=== PATIENT | male | born 1955 | race Caucasian/White ===

== ENCOUNTER 2018-07-17 14:00 | Outpatient (RCR) | payer OTHER, SELFPAY ==
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
--- NOTE | 2018-07-17 14:42 | HP.PTDCSUM ---
HP - PT D/C Summary It has been my pleasure to treat TYREE GARCIA under orders from NITISH WALKER, for the diagnosis of L shoulder pain for a total of 10 visit(s). Discharge Date: 07/17/18 Please see the following information for a summary of their discharge status. - Subjective Subjective: Not feeling any better. Shots are wearing off. Next step is to get A1C down. Cancelled L shoulder surgery scope due to A1C . Shoulder exercises can bother shoulder but no more than any other activity. - Pain L shoulder. Pain Intensity (Out of 10): 5 neck Pain Intensity (Out of 10): 4 - Overall Improvement % Improvement: 0 - Objective Objective/Function: Still hesitant to elevate but full aROM, much pain especially with ext rotation. - Goals Goal 1:: I with HEP for RC and postural strength Goal Progress: Goal Met Goal 2:: Maintain no pain and normal activities for 6 weeks. Goal Progress: Not Progressing Goal 3:: Back to normal workout without pain. Goal Progress: Not Progressing - Plan Plan: D/C, pt to wait surgery. Pt wants this rather than continued PT which is apporpriate. - D/C Information Discharge Comments: Not improving, will await surgery as able. If there are questions or concerns regarding this patient's physical therapy, please feel free to call me at [phone]. Thank you for the referral of this patient. Sincerely, Collin Flynn, DPT, OCS, CSCS
== END 2018-07-17 19:00 | disposition home or self-care (01) ==
LOC: PT 14:00
DX: M25.512 Pain in left shoulder (principal)
CPT/HCPCS: 97110; 97140; 97162

== ENCOUNTER → 2019-03-14 06:31 | Outpatient (CLI) | payer OTHER, SELFPAY ==
--- NOTE | 2019-03-14 06:38 | ECHOD_ITS ---
Reason For Study: DIZZINESS/GIDDINESS Procedure This was a 2D Doppler, Color Flow transthoracic echocardiogram. Exam performed in department. Left Ventricle Normal LV size. The estimated ejection fraction is 60 %. Normal diastology for age. No regional wall motion abnormalities noted. Right Ventricle Normal RV size. Normal systolic function. Atria Normal left atrium. Normal right atrium. No doppler evidence for ASD. Mitral Valve There is no mitral valve stenosis. No mitral valve insufficiency. Tricuspid Valve There is no tricuspid stenosis. Trivial tricuspid valve insufficiency. Pulmonary artery systolic pressure is 30 mmHg. Aortic Valve Trisinus/trileaflet aortic valve. There is no aortic stenosis. No aortic valve insufficiency. Pulmonic Valve There is no pulmonic valvular stenosis. No pulmonic valve insufficiency. Great Vessels Normal aortic root. Pericardium/Pleural No pericardial effusion. MMode/2D Measurements & Calculations LVIDd: 4.9 cm IVSd: 0.97 cm Ao root diam: 3.4 cm LVIDs: 2.8 cm LVPWd: 1.1 cm RVDd: 3.1 cm FS: 43.8 % LAV(MOD-bp): 48.1 ml LA A4 area: 15.1 cm2 LA dimension(2D): 3.8 cm LAV(MOD-bp) Indexed: 22.1 ml/m2 LAV(MOD-sp2): 53.6 ml LAV(MOD-sp4): 41.0 ml RA A4 area: 12.1 cm2 Time Measurements MV dec time: 0.16 sec Doppler Measurements & Calculations MV E max landon: 51.4 cm/sec Lat Peak E' Landon: 10.8 cm/sec Med Peak E' Landon: 8.1 cm/sec MV A max landon: 55.9 cm/sec E/E' lat: 4.8 E/E' med: 6.4 MV E/A: 0.92 Ao V2 max: 105.4 cm/sec LV V1 max: 86.4 cm/sec PA V2 max: 131.2 cm/sec Ao max P.4 mmHg LV V1 max P.0 mmHg TR max landon: 256.1 cm/sec TR max P.2 mmHg Interpretation Summary The estimated ejection fraction is 60 %. Normal diastology for age. Pulmonary artery systolic pressure is 30 mmHg. Trivial tricuspid valve insufficiency. Ordering Physician: TYREE NICHOLSON Referring Physician: TYREE NICHOLSON Performed By: Ignacia Lam RDCS, RVT
--- NOTE | 2019-03-14 11:27 | STRESSREP ---
Stress Test Report Date: 03/14/2019 Procedure: Exercise tolerance test/imaging study Indications: CAD, syncope Consent: Per the patient Procedure: The patient exercised on a Charlie protocol for 8 minutes achieving a peak heart rate of 162 bpm (103 % predicted maximal heart rate) with a peak blood pressure 194/80 mmHg and a peak MET capacity of 10.1 METs. The baseline ECG demonstrated normal sinus rhythm. The peak exercise ECG demonstrated sinus tachycardia with no significant ST-T changes. EKG during recovery revealed no significant ischemic changes [There were no cardiac dysrhythmias pretest, during exercise, or recovery]. The functional capacity was considered normal for age. There was [no complaint of chest discomfort during exercise or recovery]. The examination was discontinued secondary to dyspnea. Impression: 1. Technically adequate (percent predicted maximal heart rate greater than 85%) exercise tolerance test 2. Stress test is negative for exercise-induced EKG changes of ischemia 3. The test test is negative for exercise-induced chest pain 4. Functional capacity is normal for age 5. Nuclear images pending Myocardial perfusion imaging study: Technique: The patient was injected with [11.6] mCi of technetium 99m Cardiolite and subsequently rest SPECT Cardiolite nuclear imaging was obtained in the horizontal long, vertical long, and short axis views. The patient exercised on a Charlie protocol. Please see above for details. The patient was injected with 33.4 mCi of technetium 99m Cardiolite and subsequently stress SPECT Cardiolite nuclear imaging was obtained in the horizontal long, vertical long, and short axis views. A gated Cardiolite study at peak stress was obtained. Interpretation: Rest and stress SPECT Cardiolite nuclear imaging status post realignment, normalization, and attenuation correction, demonstrates mildly decreased radioisotope uptake in a small portion of the apex on both the rest and stress images. This is likely apical thinning, normal variant. The gated Cardiolite study demonstrates [no significant regional wall motion abnormalities]. The reported LVEF is 56 %. Impression: 1. There is no evidence of significant ischemia or infarction. 2. The gated Cardiolite study reports an LVEF of 56 %. This note was generated with [employer] software. It may contain incorrect words, spelling, and punctuation that were not noted in checking the note before signing.
== END ==
DX: I25.10 Atherosclerotic heart disease of native coronary artery without angina pectoris (principal); R42 Dizziness and giddiness
CPT/HCPCS: 78452; 93017; 93306; A9500; A4216

== ENCOUNTER 2020-02-10 15:30 | Outpatient (RCR) | payer OTHER, SELFPAY ==
--- NOTE | 2019-12-18 14:51 | HP.PTEVAL_ITS ---
Patient's Visit Information TYREE GARCIA is a 64 year old M referred to Physical Therapy by ESTER GANN with a diagnosis of L Rotator cuff repair 11/14/19. Date of Evaluation: 12/18/19 Physical Therapist: Albaro Ackerman, PT, ATC - Visit Plan Frequency: 2x /Week Duration: 4-6 Weeks Plan: Follow rotator cuff protocal. CP for pain - Subjective DOS: 11/14/19. Pt had L rotator cuff repair at that time. Pt notes this was the second time he had to have surgery performed on his L shoulder. Pt reports he fell in 2012 which is when he actually tore his rotator cuff. Pt reports he had PT on his L shoulder prior to surgery but the pain would not go away. Pt is R hand dominant. Pt notes he really doesnt have pain this date. No sleep difficulty at this time as he is able to sleep in his bed. No tingling or numbness in L UE from L shoulder surgery, but pt notes he has had carpal tunnel for a long time. Pt is currently retired. 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 1/10 pain at rest, 7/10 at worst. - Pain L shoulder Pain Intensity (Out of 10): 1 Pain Intensity Range: 7 - Objective Neuro: UE sensation is WNL to light touch. B bicepital reflex= 2/3. ROM: R shoulder AROM flex= 160, abd= 160, ER= 65, IR WNL; L shoulder flex=. MMT: R shoulder 5/5 throughout. L shoulder not tested at this time per protocal. Observation: Incisions are fully healed. No signs of infection. - Goals Goal 1:: Decrease L shoulder pain x 50% to aid with sleep Goal Time Frame: 4-6 Weeks Goal 2:: Increase L shoulder strength to aid with IADL's Goal Time Frame: 4-6 Weeks Goal 3:: Increase R shoulder AROM flex and abd x 30 degrees to aid with overhead lifting Goal Time Frame: 4-6 Weeks Goal 4:: I with HEP Goal Time Frame: 4-6 Weeks - Rehabilitation Potential Physical Therapy Diagnosis: L shoulder pain, weakness, and limited ROM secondary to L rotaotr cuff repair Rehabilitation Potential: Good - Anticipated Interventions Patient/Client Instruction: Educate patient on: Condition, Plan of Care For the Purpose of:: To decrease pain, To increase ROM, To improve muscle performance and motor function Therapeutic Exercise to Include: Strength training, Endurance training, Flexibilty training, Passive ROM, Active ROM, Scapular Strength/Stabilization For the Purpose of:: To decrease pain, To increase ROM, To improve muscle performance and motor function Cryotherapy (ice pack, ice massage): Yes For the Purpose of:: To decrease pain, To increase ROM, To improve muscle performance and motor function Thank you for the opportunity to evaluate your patient. For Medicare and Medicare HMO plans, please review the plan of care and approve it. It will need to be FAXED BACK to us at [phone] for Medicare purposes. For Medicare only, by signing this I certify the plan of care. Please let me know if there are questions or concerns regarding this plan of care. Physician Signature: Date:
--- NOTE | 2020-02-10 15:48 | HP.PTDCSUM ---
It has been my pleasure to treat TYREE GARCIA referred by ESTER GANN, with the diagnosis of L Rotator cuff repair 11/14/19 for a total of 15 visit(s). Discharge Date: Please see the following information for a summary of their discharge status. Subjective: Pt reports he is ready to continue with ex's I. L shoulder Pain Intensity (Out of 10): 1 % Improvement: 75 Objective/Function: L shoulder pain is currently /. L shoulder ROM: flex= 150, abd= 150, ER= 55 degrees. L shoulder MMT: Grossly 4-/5 throughout. Pt is I with HEP. Rx goals achieved Goal 1:: Decrease L shoulder pain x 50% to aid with sleep Goal Progress: Goal Met Goal 2:: Increase L shoulder strength to aid with IADL's Goal Progress: Goal Met Goal 3:: Increase R shoulder AROM flex and abd x 30 degrees to aid with overhead lifting Goal Progress: Goal Met Goal 4:: I with HEP Goal Progress: Goal Met Plan: Discharge If there are questions or concerns regarding this patient's physical therapy, please feel free to call me at [phone]. Thank you for the referral of this patient. Sincerely, Albaro Ackerman, PT, ATC
== END 2020-02-10 19:00 | disposition home or self-care (01) ==
LOC: PT 15:30
DX: S46.012D Strain of muscle(s) and tendon(s) of the rotator cuff of left shoulder, subsequent encounter (principal)
CPT/HCPCS: 97110; 97140; 97161; 97164

== ENCOUNTER 2020-02-21 17:21 | Observation (INO) | payer OTHER, MEDICARE, SELFPAY ==
[2020-02-21 17:21] VITALS: BP 144/94; PULSE 117; RESP 18; TEMP 35.8; O2SAT 99; BMI 25.1
--- NOTE | 2020-02-21 17:24 | EKG12_ITS ---
Test Reason : CP Blood Pressure : / mmHG Vent. Rate : 097 BPM Atrial Rate : 097 BPM P-R Int : 176 ms QRS Dur : 092 ms QT Int : 356 ms P-R-T Axes : 062 041 061 degrees QTc Int : 452 ms Normal sinus rhythm Low voltage QRS Borderline ECG Confirmed by VIOLETTA PRADHAN, CARMELA ([id number]), commissioning editor KANNAN ROMERO ([id number]) on 02/26/2020 9:49:43 A M Referred By: MERI Confirmed By:JACKELINE SHIPLEY MD
--- NOTE | 2020-02-21 17:35 | RAD_ITS ---
STUDY: X-RAY CHEST REASON FOR EXAM: Male, 64 years old. Hypertension. Tachycardia. TECHNIQUE: Frontal view of the chest COMPARISON: None. FINDINGS: The lungs are clear. There are no pleural effusions. There is no pneumothorax. The heart is normal in size. The visualized osseous structures are within normal limits. RAD/Chest 1 View (Portable) IMPRESSION: No acute thoracic pathology. Electronically Signed: Aniceto High, at 17:51 EST Tel , Service support ,
--- NOTE | 2020-02-21 18:06 | ED.DCSUM_ITS ---
History of Present Illness Chief Complaint: Shortness of Breath Informant: Patient Onset: Days Current Severity: Mild Maximum Severity: Mild Narrative: Patient presents secondary to chest pressure and shortness of breath. He states he is not been feeling well for the last 3 or 4 days. Has been checking his vital signs at home and noted his blood pressure to be quite elevated on one reading and then borderline low in the next. He has noted his heart rate ranging anywhere from the 70s to 140s. Today he has had chest pressure into his back. He does report some intermittent shortness of breath almost as if he can not get a deep enough breath. He states he had similar symptoms when he had his OR in 2017. He does have one cardiac stent. Patient states he had a stress test in March of this year that was unremarkable. - Past Medical History (1) Myocardial infarction Status: Chronic (2) H/O heart artery stent Status: Chronic (3) Diabetes Status: Chronic Past Medical History - Allergies and Home Meds Allergies/Adverse Reactions: Allergies No Known Allergies Allergy (Verified 02/21/20 17:24) Primary Care Physician: [place], [place] [Primary Care Provider] - Surgical History: rotator cuff repair - right shoulder- plus labrum repair, tonsillectomy, - - Colectomy Smoking Status: Former smoker Review of Systems General: Denies: Chills, Fever Eyes: Denies: Visual changes - bilaterally ENT: Denies: Bilateral ear pain Cardiovascular: Reports: Chest pain Respiratory: Reports: Dyspnea. Denies: Cough Gastrointestinal: Denies: Abdominal pain, Nausea, Vomiting, Diarrhea Musculoskeletal: Denies: Extremity Pain Neurological: Denies: Headache Hematologic: Denies: Easy bruising, Easy bleeding Allergy: Denies: Uticaria Physical Exam Vital Signs/Narrative: Vital Signs Temp Pulse Resp BP Pulse Ox 02/21/20 17:21 96.5 F L 117 H 18 144/94 H 99 Inital Vital Signs reviewed: Yes General: Well nourished, Well developed Head: Normocephalic ENT: Moist mucous membranes Neck: Supple Cardiovascular: Regular rate, Regular rhythm Respiratory: No distress, CTA bilaterally, Chest nontender Abdomen: Soft, Nontender, Normal bowel sounds Extremities: Nontender Skin: Normal color Neurological: Alert, Oriented x3, Normal Strength, Normal Sensation Psychological: Normal affect Diagnostic/Tx/Re-eval Impressions Chest X-Ray 02/21/20 17:35 IMPRESSION: No acute thoracic pathology. Electronically Signed: Aniceto High, at 17:51 EST Tel , Service support , 02/21/20 17:35 CXR [Chest 1 View (Portable)] [RAD] Stat Laboratory Results 02/21/20 02/21/20 02/21/20 18:00 18:00 18:00 WBC 11.9 H RBC 5.16 Hgb 15.4 Hct 46.1 MCV 89.3 MCH 29.8 MCHC 33.4 RDW Std Deviation 42.2 RDW Coeff of Geri 12.8 Plt Count 231 MPV 9.4 Immature Gran % (Auto) 0.400 Neut % (Auto) 80.8 H Lymph % (Auto) 13.3 L Cuming % (Auto) 4.7 Eos % (Auto) 0.3 Baso % (Auto) 0.5 Absolute Neuts (auto) 9.6 H Absolute Lymphs (auto) 1.58 Nucleated RBC % 0 D-Dimer Quant (PE/DVT) 0.35 Sodium 140 Potassium 4.1 Chloride 106 Carbon Dioxide 24.0 Anion Gap 10 BUN 16 Creatinine 0.96 Estim Creat Clear Calc 90.38 Est GFR (MDRD) Af Amer 101 Est GFR (MDRD) Non-Af 84 BUN/Creatinine Ratio 16.7 Glucose 264 H Calcium 10.0 Troponin I < 0.015 TSH 0.85 - EKG Initial EKG Interpretation: Sinus Rhythm - Sinus at 97 with no acute ischemia. - Medical Decision Making Patient was given Zofran here followed by aspirin. On repeat evaluation he is resting comfortably. Heart rate at this time is 104. Patient does have known cardiac disease with history of OR presenting with similar symptoms. I will speak with physician regarding observation overnight for cycling of cardiac enzymes. This will also enable us to observe patient's vital signs as he is quite concerned about his fluctuating heart rate. ED Disposition - Plan for ED Patient: Disposition: Home or Assisted Living Diagnosis: Chest pain Referrals: [facility] [Primary Care Provider] -
[2020-02-21 18:09] VITALS: BP 151/104; PULSE 98; RESP 18; O2SAT 97; O2SAT 98
[2020-02-21] MEDS: Ondansetron 4 MG/2 ML Vial IV (18:12)
[2020-02-21 18:21] LABS: Absolute Lymphocyte Count 1.58 X10^3/uL (0.83-4.51); Absolute Neutrophil Count 9.6 X10^3/uL (2.0-7.7); Basophil# 0.06 X10^3/uL; Basophil% 0.5 % (0-1); Eosinophil# 0.04 X10^3/uL; Eosinophils% 0.3 % (0-5); Hematocrit 46.1 % (40-54); Hemoglobin 15.4 g/dL (13.0-16.5); Lymphocyte # 1.58 X10^3/ul (4.0); Lymphocyte % 13.3 % (19-41); Mean Corp Hgb Conc 33.4 g/dL (32-36); Mean Corpuscular Hgb 29.8 pg (27.0-32.0); Mean Corpuscular Volume 89.3 fL (80-94); Mean Platelet Vol. 9.4 fl (6.2-12.0); Monocyte# 0.56 X10^3/uL; Monocyte% 4.7 % (0-10); NRBC Flagged by Analyzer 0 % (0-5); Neutrophil # 9.59 X10^3/uL (2.7-7.7); Neutrophil % 80.8 % (47-70); Platelet Count 231 K/mm3 (150-450); RBC Distribution Width CV 12.8 % (11.6-14.6); RBC Distribution Width SD 42.2 fl (35.1-43.9); Red Blood Count 5.16 M/mm3 (4.6-6.2); White Blood Count 11.9 K/mm3 (4.4-11.0)
[2020-02-21 18:32] LABS: D-Dimer Quantitative (DVT/PE) 0.35 FEU/ug/m (0.27-0.49)
[2020-02-21] MEDS: Aspirin 81 MG TAB.CHEW 324 MG PO (18:32)
[2020-02-21 18:48] LABS: Anion Gap 10 (5-15); BUN 16 mg/dL (7-18); BUN/Creat Ratio 16.7 RATIO (10-20); Chloride 106 mmol/L (98-107); Creatinine, Serum 0.96 mg/dL (0.70-1.30); EST Glomerular Filtration Rate 84 mL/min (>60); Est Glom Filt Rate - Afr Amer 101 mL/min (>60); Estimated Creatinine Clearance 90.38 ml/min; Glucose 264 mg/dL (74-106); Potassium 4.1 mmol/L (3.5-5.1); Sodium Level 140 mmol/L (136-145); Thyroid Stim Hormone (TSH) 0.85 uIU/mL (0.358-3.74)
[2020-02-21 19:49] VITALS: BMI 25.2
[2020-02-21 20:06] VITALS: BP 146/74; PULSE 89; RESP 20; TEMP 36.6; O2SAT 98
--- NOTE | 2020-02-21 20:10 | PCM.HP.STD ---
Problem List (1) Myocardial infarction Status: Chronic (2) H/O heart artery stent Status: Chronic (3) Diabetes Status: Chronic (4) Chest pain Status: Acute History of Present Illness Date of Admission: 02/21/20 Chief Complaint: chest pain The patient is a 64 year old M with a significant history of hypertension; diabetes mellitus; CAD s/p coronary stent in 2017 who presents to the emergency department with a 2-day history of chest tightness. His chest tightness is persistent. It radiates to his left arm and to his middle back. He reports nausea and vomiting some of which is unchanged. Patient has abdominal issues and outpatient stress test already being scheduled. Associated with his symptoms is shortness of breath. Also, patient has been having home elevated high blood pressure and elevated heart rates. He reports home blood pressures of more than 200. He reports that his heart rates is in the 100s to 145. He reports palpitations. Reportedly he can hear his heartbeat in his head. Past Medical History Past Medical History (Chronic Problems): Chronic Problems Myocardial infarction (Chronic) H/O heart artery stent (Chronic) Diabetes (Chronic) Allergies No Known Allergies Allergy (Verified 02/21/20 17:24) Home Medications: Ambulatory Orders Medication Instructions Recorded Aspirin 81 tab PO DAILY 04/28/16 Cholecalciferol (VIT D3) [Vitamin 2 tab PO DAILY 04/28/16 D3] Cinnamon Bark [Cinnamon] 1 cap PO BID 04/28/16 Duloxetine HCl 90 mg PO DAILY 04/28/16 Fish Oil 1,000 mg Capsule 2 cap PO BID 04/28/16 Gabapentin [Neurontin] 600 mg PO TIDCM 04/28/16 Insulin Glargine [Lantus (BKC)] 18 units SC DAILY 04/28/16 Lisinopril [Zestril] 2.5 mg PO QHS 04/28/16 Loratadine [Allergy Relief] 10 mg PO DAILY 04/28/16 Nitroglycerin (INPATIENT USE) 0.4 mg SUBLINGUAL Q5M PRN 04/28/16 [Nitrostat] Omeprazole [Prilosec] 40 mg PO DAILY 04/28/16 Triamcinolone Ointment [Kenalog 1 applic TOPICAL BID PRN 04/28/16 Ointment] Vitamin B Complex Vit C No.3 [B 1 cap PO DAILY 04/28/16 Complex with Vitamin C] metFORMIN HCl [Glucophage] 1,000 mg PO BIDCM 04/28/16 Atorvastatin Calcium [Lipitor] 10 mg PO QHS 02/21/20 Docusate Sodium [Dulcolax Stool 100 mg PO BID 02/21/20 Softener] Multivitamin with Minerals 1 ea PO DAILY 02/21/20 [Multiple Vitamin] Surgical History: rotator cuff repair - right shoulder- plus labrum repair, tonsillectomy, - - Colectomy for polyp Smoking Status: Former smoker Tobacco Use: Cigarettes - *Family History Maternal History Items: Cancer - His mother from leukemia, Diabetes Paternal History Items: - - Denies knowledge of paternal medical history Review of Systems Constitutional: Denies: Chills, Fever, Weight Change HEENT: Denies: Head Aches, Sinus Congestion, Sinus Drainage Cardiovascular: Reports: Chest Tightness, Palpitations Respiratory: Reports: Shortness of breath at rest. Denies: Cough, Sputum production Gastrointestinal: Reports: Nausea, Vomiting. Denies: Abdominal Pain Genitourinary: Denies: Dysuria Musculoskeletal: Denies: Joint Pain, Joint Tenderness Skin: Denies: Rash, Wounds Neurological: Denies: Numbness, Tingling, Focal weakness Psychiatric: Reports: Depression. Denies: Anxiety, Homicidal Ideations, Suicidal Ideations Hematologic/ Lymphatic: Denies: Easy Bruising, Easy Bleeding VTE Information - Inpt Only VTE Present on Admission: No VTE Mechan Device Prophylaxis: SCD's VTE Pharm Prophylaxis ordered?: No Patient Problems: Active and Suspected Problems Chest pain (Acute) - Physical Exam Vitals/I&O's: Vital Signs Temp Pulse Resp BP Pulse Ox 98 F 89 20 H 146/74 H 98 02/21/20 20:06 02/21/20 20:06 02/21/20 20:06 02/21/20 20:06 02/21/20 20:06 Oxygen Delivery Method Room Air Weight: 88.904 kg Body Mass Index (BMI) 25.1 General: Alert, Oriented x3, Cooperative HEENT: Atraumatic, PERRLA, EOMI, Normocephalic Neck: Supple, No JVD, Negative Carotid Bruits, Trachea Midline Lungs: Clear to auscultation, Normal air movement, No rhonchi, No wheeze, No rales Cardiovascular: Regular rate, Regular Rhythm, Normal S1, Normal S2, No murmurs Abdomen: Bowel Sounds Present, Soft, Non Tender Extremities: No edema, Capillary Refill Less than 3 Seconds Skin: No rashes, No breakdown Musculoskeletal: No Tenderness to Palpation of Joints or Extremities Neurological: Cranial nerves II-XII grossly intact Psych/Mental Status: Anxious Laboratory Results 02/21/20 18:00: WBC 11.9 H, RBC 5.16, Hgb 15.4, Hct 46.1, MCV 89.3, MCH 29.8, MCHC 33.4, RDW Std Deviation 42.2, RDW Coeff of Geri 12.8, Plt Count 231, MPV 9.4, Immature Gran % (Auto) 0.400, Neut % (Auto) 80.8 H, Lymph % (Auto) 13.3 L, Phelps % (Auto) 4.7, Eos % (Auto) 0.3, Baso % (Auto) 0.5, Absolute Neuts (auto) 9.6 H, Absolute Lymphs (auto) 1.58, Nucleated RBC % 0 02/21/20 18:00: D-Dimer Quant (PE/DVT) 0.35 02/21/20 18:00: Sodium 140, Potassium 4.1, Chloride 106, Carbon Dioxide 24.0, Anion Gap 10, BUN 16, Creatinine 0.96, Estim Creat Clear Calc 90.38, Est GFR (MDRD) Af Amer 101, Est GFR (MDRD) Non-Af 84, BUN/Creatinine Ratio 16.7, Glucose 264 H, Calcium 10.0, Troponin I < 0.015, TSH 0.85 Assessment/Plan All Active Problems Chest pain (Acute) The patient is a 64 year old M with a significant history of hypertension; diabetes mellitus; CAD coronary stenting 2016 who presents emergency department with 2-day history of persisted chest tightness; palpitations; tachycardia; and elevated at home. Chest pain FLOR score of 3; low score Likely secondary to anxiety and elevated blood pressure. Place on a monitored bed at PCU Impression of chest x-ray by radiologist: No acute thoracic pathology. Actual CXR image was independently visualized. No acute cardiopulmonary process was noted. Actual EKG tracing was independently visualized. EKG tracing showed sinus rhythm. Received aspirin 324 mg at emergency department. ASA 81 mg p.o. daily ordered SL NTG 0.4 mg prn as needed for chest pain ordered Morphine as needed for pain ordered We will check lipid panel. Case were discussed with cardiology on-call. Of note patient had unremarkable stress test in March 2019. Will cycle cardiac enzymes and will control blood pressure. Hypertension Elevated blood pressure on presentation. Reported systolic blood pressure of above 200 at home. On lisinopril 2.5 mg p.o. nightly continued. Will start patient on low-dose beta-delonte. Trend blood pressure and adjust blood pressure medications. Diabetes mellitus Blood glucose is not within goal Hold metformin the hospital setting. Continue basal insulin nightly. Accu-Chek q. residual correction scale insulin. Leukocytosis White count of 11.9 with neutrophilic predominance and lymphopenia. Likely reactive. Chest x-ray is not remarkable for Covid. Trend. DVT prophylaxis Patient in observation status. Encouraged to ambulate. SCD ordered. OBSV E&M: 90614 Initial observation care L2
[2020-02-21 20:51] VITALS: BP 140/83; PULSE 78; RESP 17; TEMP 37.2; O2SAT 96
[2020-02-21 20:52] VITALS: BMI 25.5
--- NOTE | 2020-02-21 20:56 | EKG12_ITS ---
Test Reason : CP ADMIT Blood Pressure : / mmHG Vent. Rate : 075 BPM Atrial Rate : 075 BPM P-R Int : 190 ms QRS Dur : 090 ms QT Int : 398 ms P-R-T Axes : 044 006 040 degrees QTc Int : 444 ms Normal sinus rhythm Low voltage QRS Borderline ECG Confirmed by ANDRIY PRADHAN, EPIFANIO ([id number]), web content editor [place] GERMAIN ([id number]) on 02/27/2020 9:08:11 AM Referred By: DR GAR Confirmed By:EPIFANIO ASHRAF MD
[2020-02-21 21:10] VITALS: PULSE 82
[2020-02-21 22:52] VITALS: PULSE 89
[2020-02-21] MEDS: Metoprolol Tartrate 25 MG Tablet 12.5 MG PO (22:52)
[2020-02-21] MEDS: Lisinopril 2.5 MG Tablet PO (22:53)
[2020-02-21] MEDS: Atorvastatin Calcium 10 MG Tablet PO (22:53)
[2020-02-21] MEDS: Insulin Lispro 100 UNIT/ML INSULN.PEN SC (22:54)
[2020-02-21 23:06] LABS: Bedside Glucose 187 mg/dL (70-110)
[2020-02-22 03:07] VITALS: BP 116/66; PULSE 59; PULSE 60; RESP 16; TEMP 36.9; O2SAT 97
[2020-02-22] MEDS: Insulin Lispro 100 UNIT/ML INSULN.PEN SC (06:53)
[2020-02-22 07:00] LABS: Bedside Glucose 189 mg/dL (70-110)
[2020-02-22 07:01] VITALS: PULSE 62
[2020-02-22 07:06] LABS: Absolute Lymphocyte Count 4.23 X10^3/uL (0.83-4.51); Absolute Neutrophil Count 5.4 X10^3/uL (2.0-7.7); Basophil# 0.06 X10^3/uL; Basophil% 0.5 % (0-1); Eosinophil# 0.37 X10^3/uL; Eosinophils% 3.3 % (0-5); Hemoglobin 13.5 g/dL (13.0-16.5); Lymphocyte # 4.23 X10^3/ul (4.0); Lymphocyte % 37.9 % (19-41); Mean Corp Hgb Conc 32.9 g/dL (32-36); Mean Corpuscular Hgb 29.4 pg (27.0-32.0); Mean Corpuscular Volume 89.3 fL (80-94); Mean Platelet Vol. 9.5 fl (6.2-12.0); Monocyte# 1.02 X10^3/uL; Monocyte% 9.1 % (0-10); NRBC Flagged by Analyzer 0 % (0-5); Neutrophil # 5.44 X10^3/uL (2.7-7.7); Neutrophil % 48.8 % (47-70); Platelet Count 197 K/mm3 (150-450); RBC Distribution Width CV 12.7 % (11.6-14.6); RBC Distribution Width SD 41.4 fl (35.1-43.9); Red Blood Count 4.59 M/mm3 (4.6-6.2); White Blood Count 11.2 K/mm3 (4.4-11.0)
[2020-02-22 07:14] VITALS: O2SAT 94
[2020-02-22 07:30] LABS: Cholesterol 82 mg/dL (200); High Density Lipoprotein 28 mg/dL; Triglycerides 85 mg/dL; Very Low Density Lipoprotein 17 mg/dL (5-40)
[2020-02-22] MEDS: Aspirin E.C. 81 MG Tablet PO (08:00)
[2020-02-22] MEDS: Multivitamins,Ther W-Minerals Tablet 1 TABLET PO (08:00)
[2020-02-22] MEDS: Loratadine 10 MG Tablet PO (08:01)
[2020-02-22 08:02] VITALS: PULSE 62
[2020-02-22] MEDS: DULoxetine Hcl 30 MG Capsule 90 MG PO (08:02)
[2020-02-22] MEDS: Metoprolol Tartrate 25 MG Tablet 12.5 MG PO (08:02)
[2020-02-22] MEDS: Gabapentin 600 MG Tablet PO (08:02)
[2020-02-22] MEDS: Vitamin B Comp W-C Capsule 1 CAP PO (08:03)
[2020-02-22] MEDS: Pantoprazole Sodium 40 MG Tablet PO (08:03)
[2020-02-22 09:00] VITALS: BP 114/72; PULSE 63; RESP 20; TEMP 36.5; O2SAT 100
--- NOTE | 2020-02-22 11:30 | DCINST_ITS ---
- Discharge Diagnoses Current Active Problems: Current Active and Chronic Problems Myocardial infarction (Chronic) H/O heart artery stent (Chronic) Diabetes (Chronic) Chest pain (Acute) You will use the following diet at home:: Calorie/Carbohydrate Controlled (specify 1200, 1400, etc), Cardiac Your food should be the consistency of: Regular Your liquids should be the consistency of: Regular/Thin Discharge Activity: Return to Normal Activity Weight Bearing Status: Weight bearing as tolerated Call your doctor if you observe: Fever of 101 or Higher, Coldness, Increased Pain, Numbness or Tingling, Change in Color, Inability to have a bowel movement, Shortness of breath, Dizziness, Fainting spells, Swelling in the ankles, Chest pain, Prolonged hiccoughing, Increased palpitations (irregular heartbeat), Calf discomfort, Uncontrolled pain Additional Instructions: Advised to follow-up with auto specialty services manager for control of heart rate. Allergies/Adverse Reactions: Allergies No Known Allergies Allergy (Verified 02/21/20 17:24) Medications to take at Discharge Aspirin 81 tab PO DAILY 04/28/16 Cholecalciferol (VIT D3) [Vitamin D3] 2 tab PO DAILY 04/28/16 Cinnamon Bark [Cinnamon] 1 cap PO BID 04/28/16 Duloxetine HCl 90 mg PO DAILY 04/28/16 Fish Oil 1,000 mg Capsule 2 cap PO BID 04/28/16 Gabapentin [Neurontin] 600 mg PO TIDCM 04/28/16 Insulin Glargine [Lantus (BKC)] 18 units SC DAILY 04/28/16 Lisinopril [Zestril] 2.5 mg PO QHS 04/28/16 Nitroglycerin (INPATIENT USE) [Nitrostat] 0.4 mg SUBLINGUAL Q5M PRN 04/28/16 Omeprazole [Prilosec] 40 mg PO DAILY 04/28/16 Triamcinolone Ointment [Kenalog Ointment] 1 applic TOPICAL BID PRN 04/28/16 Vitamin B Complex Vit C No.3 [B Complex with Vitamin C] 1 cap PO DAILY 04/28/16 metFORMIN HCl [Glucophage] 1,000 mg PO BIDCM 04/28/16 Atorvastatin Calcium [Lipitor] 10 mg PO QHS 02/21/20 Docusate Sodium [Dulcolax Stool Softener] 100 mg PO BID 02/21/20 Multivitamin with Minerals [Multiple Vitamin] 1 ea PO DAILY 02/21/20 Loratadine [Allergy Relief] 10 mg PO DAILY PRN PRN #0 02/22/20 Metoprolol Tartrate [Lopressor (beta delonte)] 12.5 mg PO BID #60 tab 02/22/20 Primary Care Physician: [facility],[place] [Primary Care Provider] - Please follow up with your Primary Care Physician in: In 2 weeks Test Results: Test results from this visit will be discussed in further detail at your follow- up appointment, if applicable.
--- NOTE | 2020-02-22 12:04 | PCM.DC.SUM ---
Discharge Date and Diagnosis - Problem List Patient Problems: Active and Suspected Problems Chest pain (Acute) Date of Admission: 02/21/20 Date of Discharge: 02/22/20 - Primary Discharge Diagnosis Acute Problems: Active Problems Chest pain (Acute) - Secondary Discharge Diagnosis Chronic Problems: Chronic Problems Myocardial infarction (Chronic) H/O heart artery stent (Chronic) Diabetes (Chronic) Hospital Course and Treatment Summary of Care Provided: [] This 64 woman with history of hypertension, diabetes mellitus, coronary artery status post PCI/stenting 2017 was admitted with 2 to 3 days of chest tightness with radiation to left arm and back associated with mild SOB, palpitation, tachycardia. Patient also had fluctuation in heart rate and blood pressure mainly on walking and exertion. Heart rate fluctuates between 100s to 145 and blood pressure from 120s to 200s. Patient was admitted on PCU. EKG shows sinus rhythm. Chest x-ray no acute abnormality. Patient walking heart rate and blood pressure was monitored. Patient heart rate in 70s and blood pressure 127/76 remained stable on walking. Serial troponins are negative. Fasting profile shows LDL 37, triglyceride 85. History of diabetes mellitus type 2. Glucose elevated 187-189 but less than 200. TSH normal. Patient already had unremarkable stress test in March 2019. Discharge medication reconciliation done. Discharge follow-up instructions completed. Discharge process discussed with the patient and all questions were answered to patient's satisfaction. 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 It seems he also has a scheduled gastric emptying study on February 25, 2020. Patient Problems: Active and Suspected Problems Chest pain (Acute) Subjective: Patient complain of chest pain for last 2-3 days. Heart rate and blood pressure fluctuates in walking. It was similar presentation when he had coronary artery disease/OR and a stent in 2016. In the morning patient is chest pain-free. Discussed with the nursing staff. Patient heart rate in 70s and blood pressure 127/76 remained stable on walking. - Physical Exam Vitals/I&O's: Vital Signs Temp Pulse Resp BP Pulse Ox 97.7 F L 63 20 H 114/72 100 02/22/20 09:00 02/22/20 09:00 02/22/20 09:00 02/22/20 09:00 02/22/20 09:00 Oxygen Delivery Method Room Air Weight: 198 lb 13.711 oz Body Mass Index (BMI) 25.5 Intake and Output for Last 24 Hours 02/20/20 02/21/20 02/22/20 23:59 23:59 23:59 Intake Total 850 / 850 Balance 850 / 850 General: Alert, Oriented x3, Cooperative HEENT: Atraumatic, PERRLA, EOMI, Normocephalic Neck: Supple, No JVD, Negative Carotid Bruits Lungs: Clear to auscultation, Normal air movement, No rhonchi, No wheeze, No rales Cardiovascular: Regular rate, Regular Rhythm, Normal S1, Normal S2, No murmurs Abdomen: Bowel Sounds Present, Soft, Non Tender, Non-Distended Extremities: No edema, Capillary Refill Less than 3 Seconds Skin: No rashes, No breakdown Musculoskeletal: No Tenderness to Palpation of Joints or Extremities Neurological: Cranial nerves II-XII grossly intact, Deep Tendon Reflexes 2+/4 and Symmetrical, Neuro grossly intact, Motor Exam 5/5 strength throughout Psych/Mental Status: Normal Affect, Appropriate Laboratory Results 02/21/20 18:00: WBC 11.9 H, RBC 5.16, Hgb 15.4, Hct 46.1, MCV 89.3, MCH 29.8, MCHC 33.4, RDW Std Deviation 42.2, RDW Coeff of Geri 12.8, Plt Count 231, MPV 9.4, Immature Gran % (Auto) 0.400, Neut % (Auto) 80.8 H, Lymph % (Auto) 13.3 L, [place] % (Auto) 4.7, Eos % (Auto) 0.3, Baso % (Auto) 0.5, Absolute Neuts (auto) 9.6 H, Absolute Lymphs (auto) 1.58, Nucleated RBC % 0 02/21/20 18:00: D-Dimer Quant (PE/DVT) 0.35 02/21/20 18:00: Sodium 140, Potassium 4.1, Chloride 106, Carbon Dioxide 24.0, Anion Gap 10, BUN 16, Creatinine 0.96, Estim Creat Clear Calc 90.38, Est GFR (MDRD) Af Amer 101, Est GFR (MDRD) Non-Af 84, BUN/Creatinine Ratio 16.7, Glucose 264 H, Calcium 10.0, Troponin I < 0.015, TSH 0.85 02/21/20 21:20: Troponin I < 0.015 02/21/20 22:33: POC Glucose 187 H 02/22/20 00:35: Troponin I < 0.015 02/22/20 05:40: Triglycerides 85, Cholesterol 82, LDL Cholesterol 37, VLDL Cholesterol 17, HDL Cholesterol 28 L 02/22/20 05:40: WBC 11.2 H, RBC 4.59 L, Hgb 13.5, Hct 41.0, MCV 89.3, MCH 29.4, MCHC 32.9, RDW Std Deviation 41.4, RDW Coeff of Geri 12.7, Plt Count 197, MPV 9.5, Immature Gran % (Auto) 0.400, Neut % (Auto) 48.8, Lymph % (Auto) 37.9, [place] % (Auto) 9.1, Eos % (Auto) 3.3, Baso % (Auto) 0.5, Absolute Neuts (auto) 5.4, Absolute Lymphs (auto) 4.23, Nucleated RBC % 0 02/22/20 06:51: POC Glucose 189 H Current Medications Acetaminophen (Acetaminophen 325 Mg Tablet) 650 mg PO Q6H PRN PRN PRN Reason: Pain Score 1-10/Temp > 100.7 F Aspirin (Aspirin E.C. 81 Mg Tablet) 81 mg PO DAILY@0800 [facility] Last Admin: 02/22/20 08:00 Dose: 81 mg Documented by: Atorvastatin Calcium (Atorvastatin Calcium 10 Mg Tablet) 10 mg PO QHS [facility] Last Admin: 02/21/20 22:53 Dose: 10 mg Documented by: Cholecalciferol (Cholecalciferol (Vit D3) 1,000 Unit (25mcg)) 2,000 unit PO DAILY [facility] Last Admin: 02/22/20 08:00 Dose: 2,000 unit Documented by: Dextrose (Dextrose 50%-Water 25 Gm/50 Ml Disp.Syrin) 0 gm IV X1 PRN; Protocol PRN Reason: Hypoglycemia Duloxetine HCl (Duloxetine Hcl 30 Mg Capsule) 90 mg PO DAILY [facility] Last Admin: 02/22/20 08:02 Dose: 90 mg Documented by: Gabapentin (Gabapentin 600 Mg Tablet) 600 mg PO TIDCM [facility] Last Admin: 02/22/20 08:02 Dose: 600 mg Documented by: Glucagon (Glucagon 1 Mg/Ml Syringe) 1 mg IM .X1 PRN PRN Reason: Hypoglycemia Insulin Glargine (Insulin Glargine 100 Units/Ml Pen) 18 units SC QHS [facility] Last Admin: 02/22/20 09:46 Dose: 18 u Documented by: Insulin Human Lispro (Insulin Lispro 100 Unit/Ml Insuln.Pen) 0 unit SC [facility]; Protocol Last Admin: 02/22/20 06:53 Dose: 2 units Documented by: Lisinopril (Lisinopril 2.5 Mg Tablet) 2.5 mg PO DAILY [facility] Last Admin: 02/21/20 22:53 Dose: 2.5 mg Documented by: Loratadine (Loratadine 10 Mg Tablet) 10 mg PO DAILY [facility] Last Admin: 02/22/20 08:01 Dose: 10 mg Documented by: Melatonin (Melatonin 3 Mg Tablet) 3 mg PO QHS PRN PRN PRN Reason: INSOMNIA Metoprolol Tartrate (Metoprolol Tartrate 25 Mg Tablet) 12.5 mg PO BID [facility] Last Admin: 02/22/20 08:02 Dose: 12.5 mg Documented by: Morphine Sulfate (Morphine 2 Mg/Ml Syringe) 2 mg IV Q3H PRN PRN PRN Reason: Pain Score 6-10 Multivitamins (Vitamin B Comp W-C Capsule) 1 capsule PO DAILY [facility] Last Admin: 02/22/20 08:03 Dose: 1 capsule Documented by: Multivitamins/Minerals (Multivitamins,Ther W-Minerals Tablet) 1 tablet PO DAILY@0800 [facility] Last Admin: 02/22/20 08:00 Dose: 1 tablet Documented by: Nitroglycerin (Nitroglycerin (Inpatient Use) 0.4 Mg Tab.Subl) 0.4 mg SUBLINGUAL Q5M PRN PRN Reason: CHEST PAIN Ondansetron HCl (Ondansetron 4 Mg/2 Ml Vial) 4 mg IV Q8H PRN PRN PRN Reason: NAUSEA/VOMITING Pantoprazole Sodium (Pantoprazole Sodium 40 Mg Tablet) 40 mg PO DAILY [facility] Last Admin: 02/22/20 08:03 Dose: 40 mg Documented by: Senna/Docusate Sodium (Senna/Docusate Sodium 1 Tablet) 2 tablet PO BID PRN PRN PRN Reason: Constipation Sodium Chloride (0.9% Saline Lock 10 Ml Syringe) 10 - 40 ml IV UD PRN PRN Reason: SALINE FLUSH Discharge Activity: Return to Normal Activity Weight Bearing Status: Weight bearing as tolerated Call your doctor if you observe: Fever of 101 or Higher, Coldness, Increased Pain, Numbness or Tingling, Change in Color, Inability to have a bowel movement, Shortness of breath, Dizziness, Fainting spells, Swelling in the ankles, Chest pain, Prolonged hiccoughing, Increased palpitations (irregular heartbeat), Calf discomfort, Uncontrolled pain Home Medications: Medications to take at Discharge Aspirin 81 tab PO DAILY 04/28/16 Cholecalciferol (VIT D3) [Vitamin D3] 2 tab PO DAILY 04/28/16 Cinnamon Bark [Cinnamon] 1 cap PO BID 04/28/16 Duloxetine HCl 90 mg PO DAILY 04/28/16 Fish Oil 1,000 mg Capsule 2 cap PO BID 04/28/16 Gabapentin [Neurontin] 600 mg PO TIDCM 04/28/16 Insulin Glargine [Lantus SoloStar Pen] 18 units SC DAILY 04/28/16 Lisinopril [Zestril] 2.5 mg PO QHS 04/28/16 Nitroglycerin (INPATIENT USE) [Nitrostat] 0.4 mg SUBLINGUAL Q5M PRN 04/28/16 Omeprazole [Prilosec] 40 mg PO DAILY 04/28/16 Triamcinolone Ointment [Kenalog] 1 applic TOPICAL BID PRN 04/28/16 Vitamin B Complex Vit C No.3 [B Complex with Vitamin C] 1 cap PO DAILY 04/28/16 metFORMIN HCl [Glucophage] 1,000 mg PO BIDCM 04/28/16 Atorvastatin Calcium [Lipitor] 10 mg PO QHS 02/21/20 Docusate Sodium [Dulcolax Stool Softener] 100 mg PO BID 02/21/20 Multivitamin with Minerals [Multiple Vitamin] 1 ea PO DAILY 02/21/20 Loratadine [Allergy Relief] 10 mg PO DAILY PRN PRN #0 02/22/20 Metoprolol Tartrate [Lopressor (beta delonte)] 12.5 mg PO BID #60 tab 02/22/20 Following Prescriptions Were Given to Patient: Metoprolol Tartrate [Lopressor (beta delonte)] 12.5 mg PO BID #60 tab Transmission Status: Received by [facility]/pharmacy #[id number] [facility] Physician[facility] [Primary Care Provider] - Please follow up with your Primary Care Physician in: In 2 weeks Medical Necessity - Tobacco Use Smoking Status: Former smoker Tobacco Use: Cigarettes Meaningful Use Info Meaningful Use Diagnoses (Choose all that apply): None applicable OBSV E&M: 08956 Observation care discharge
[2020-02-22 12:17] VITALS: BP 120/76; PULSE 70; RESP 16; O2SAT 98
== END 2020-02-22 11:59 | disposition home or self-care (01) ==
LOC: ED 19:13 → PCU 20:07
PROVIDERS: Admitting Provider Hospitalist; Emergency Provider Emergency Medicine; Visit Provider Internal Medicine
DX: R07.89 Other chest pain (principal); R06.02 Shortness of breath; E11.9 Type 2 diabetes mellitus without complications; I25.2 Old myocardial infarction; Z87.891 Personal history of nicotine dependence; Z79.899 Other long term (current) drug therapy; Z79.4 Long term (current) use of insulin; Z95.5 Presence of coronary angioplasty implant and graft; I25.10 Atherosclerotic heart disease of native coronary artery without angina pectoris; I10 Essential (primary) hypertension
CPT/HCPCS: 36415; 71045; 80048; 80061; 82962; 84443; 84484; 85025; 85379; 93005; 96374; 99218; 99285; A4216; G0378; J2405

== ENCOUNTER → 2020-03-02 12:51 | Outpatient (CLI) | payer OTHER, SELFPAY ==
[2020-02-21 20:52] VITALS: BMI 25.5
--- NOTE | 2020-03-02 12:54 | NM_ITS ---
CLINICAL: 64-year-old diabetic male with reported history of abdominal bloating and nausea. SEMI-SOLID PHASE 99m Tc SULFUR COLLOID GASTRIC EMPTYING STUDY COMPARISON: None available FINDINGS: The patient was administered 1.0 mCi of 99m Tc sulfur colloid mixed with oatmeal and consumed per os. Image acquisitions in the anterior-posterior projections were acquired for a total of 60 minutes. There is prompt visualization of the stomach. There is no gastroesophageal reflux identified. There is no evidence of emptying of the radiopharmaceutical on both qualitative-visual and quantitative analysis, (Normal: 12-56 minutes). NM/Gastric Emptying Study IMPRESSION: 1. MARKEDLY ABNORMAL 99m Tc sulfur colloid semi-solid phase (oatmeal) gastric emptying imaging examination. A. There is significantly delayed semi-solid phase gastric emptying compared to normal controls with no discernible emptying on the current evaluation. (Kenneth et al, J Nucl Med Tech 38: 186, 2010). Electronically Signed: Edi Howard DO at 22:57 EST Tel , Service support ,
== END ==
DX: K31.84 Gastroparesis (principal)
CPT/HCPCS: 78264; A9541

== ENCOUNTER → 2022-06-17 | Outpatient (CLI) | payer OTHER, SELFPAY ==
--- NOTE | 2022-06-17 16:37 | STRESSREP ---
Stress Test Report Treadmill myocardial perfusion stress test. Indication; 67-year-old patient with history of CAD Prior myocardial infarction with coronary artery stent History of diabetes mellitus Patient presented with symptoms of chest pain and evaluated by treadmill nuclear stress test Stress protocol: Resting EKG demonstrates. Normal sinus rhythm. Patient exercised according to standard Charlie protocol, for 5 minutes 16 seconds achieving a work level of maximum METS 7.0 The resting heart rate of 56 bpm, michelle to a maximum heart rate of 157 bpm. This value represented 100 or 2% of the maximal age-predicted heart rate. The resting blood pressure of 130/86 mmHg, michelle to a maximum blood pressure of 219/90 mmHg. Exercise test was terminated due to target heart rate achieved patient experienced symptoms of tightness in the chest also had the back pain. Stress EKG showed, ST depression noted in the inferior lead and in recovery Arrhythmia: Frequent PVCs, noted in recovery Symptoms: Patient had symptoms of chest pain and back Blood pressure at rest: 130/86 mmHg, blood pressure at the end of stress: 140/78 mmHg Myocardial perfusion protocol. 11 point mCi of Technetium 99m Sestamibi was injected at rest. Following maximal stress, 34 mCi of Technetium 99m sestamibi was injected. Stress images were obtained stress and rest images were reconstructed and compared in the short axis vertical and horizontal long axis. Gated images were also obtained Perfusion SPECT analysis: Review of the images demonstrate, fixed inferior and apical defect consistent with previous infarction, small to moderate area of inferior and apical reversible myocardial ischemia noted. . Gated SPECT analysis: The gated ejection fraction is 63%. Normal ventricular wall motion on gated images. Conclusion: Abnormal treadmill sestamibi myocardial fusion study with evidence of ST depression noted at maximal stress and frequent episodes of PVCs in recovery Patient is well had symptoms of chest pain reported In the images by nuclear stress test revealed evidence of fixed inferior and apical defect with inferior and lateral reversible myocardial ischemia. There is no prior study to compare. sehrif Finley MD,FACC,[facility]
== END | disposition home or self-care (01) ==
DX: R07.9 Chest pain, unspecified (principal)
CPT/HCPCS: 78452; 93017; A9500; A4216

== ENCOUNTER → 2022-07-04 | Outpatient (CLI) | payer OTHER, SELFPAY ==
--- NOTE | 2022-07-04 16:50 | RAD_ITS ---
STUDY: X-RAY CHEST REASON FOR EXAM: Male, 67 years old. cad TECHNIQUE: PA and lateral views of the chest. COMPARISON: February 21, 2020 chest x-ray FINDINGS: There is a visualized cervical spine fusion. The lungs are clear and expanded. There is no demonstrated pleural abnormality. Normal size heart. Normal mediastinum and nahum. Normal visualized pulmonary arteries. Normal visualized aortic arch and descending thoracic aorta. There are diffuse degenerative changes of the visualized thoracic spine. Normal visualized ribs, clavicles, and shoulders. There is no demonstrated abnormality of the visualized soft tissue structures of the upper abdomen. RAD/Chest PA and Lateral IMPRESSION: No demonstrated acute cardiopulmonary process. Electronically Signed: Celia Vance MD at 0:19 EDT ,
[2022-07-04 17:15] LABS: Absolute Lymphocyte Count 3.71 X10^3/uL (0.83-4.51); Absolute Neutrophil Count 6.3 X10^3/uL (2.0-7.7); Basophil% 0.9 % (0-1); Eosinophil# 0.36 X10^3/uL; Eosinophils% 3.2 % (0-5); Lymphocyte # 3.71 X10^3/ul (0.83-4.51); Lymphocyte % 32.7 % (19-41); Mean Corp Hgb Conc 33.3 g/dL (32-36); Mean Corpuscular Hgb 30.3 pg (27.0-32.0); Mean Corpuscular Volume 90.9 fL (80-94); Mean Platelet Vol. 9.4 fl (6.2-12.0); Monocyte# 0.88 X10^3/uL; Monocyte% 7.8 % (0-10); NRBC Flagged by Analyzer 0 % (0-5); Neutrophil # 6.27 X10^3/uL (2.7-7.7); Neutrophil % 55.1 % (47-70); Platelet Count 225 K/mm3 (150-450); RBC Distribution Width CV 12.8 % (11.6-14.6); RBC Distribution Width SD 42.5 fl (35.1-43.9); Red Blood Count 4.62 M/mm3 (4.6-6.2); White Blood Count 11.4 K/mm3 (4.4-11.0)
[2022-07-04 18:34] LABS: Anion Gap 7 (5-15); BUN 12 mg/dL (7-18); BUN/Creat Ratio 16.4 RATIO (10-20); Calcium,Total 10.1 mg/dL (8.5-10.1); Chloride 105 mmol/L (98-107); Creatinine, Serum 0.73 mg/dL (0.70-1.30); EST Glomerular Filtration Rate 113 mL/min (>60); Est Glom Filt Rate - Afr Amer 137 mL/min (>60); Glucose 98 mg/dL (74-106); Potassium 4.1 mmol/L (3.5-5.1); Sodium Level 139 mmol/L (136-145)
== END | disposition home or self-care (01) ==
LOC: RAD 16:48
PROVIDERS: Referring Provider Internal Medicine Cardiovascular Disease; Visit Provider Internal Medicine Cardiovascular Disease
DX: R94.39 Abnormal result of other cardiovascular function study (principal); R07.9 Chest pain, unspecified
CPT/HCPCS: 36415; 71046; 80048; 85025

== ENCOUNTER 2022-07-13 06:52 | Day surgery (SDC) | payer OTHER, SELFPAY ==
[2022-07-13 07:11] VITALS: BMI 23.2
--- NOTE | 2022-07-13 08:45 | CL.D_ITS ---
Patient Name: TYREE GARCIA Study Date: 07/13/2022 Performing: Gael Beth MD Ht: 74 inches 187.96 cm : 1955 Wt: lbs kg Age: 67 Gender: male BSA: PROCEDURE(S) PERFORMED [id number])LHC/COR CLINICAL PROFILE AND INDICATIONS Indications: Suspected CAD Heart Failure: None Stress/Imaging Date: 06/17/22Stress Test with SPECT MPI: Positive Intermediate Risk CAD Presentations: Stable angina. CONCLUSIONS Non obstructive coronary arteries Previously placed LAD stent patent RECOMMENDATIONS Medical therapy DESCRIPTION OF PROCEDURE The patient arrived to the procedure lab. The risks and benefits of the procedure as well as a full description of our services here and current unavailability of surgical backup were fully explained to the patient and/or their significant other prior to the catheterization. The Timeout was completed, verifying the correct patient and procedure. The patient's procedural site was prepped and draped in the usual fashion. Local anesthetic was given subcutaneously to right radial region with Lidocaine 2%. Using a modified Seldinger technique, arterial access was obtained via the right radial artery, a 6Fr sheath was inserted. Left Coronary Artery selective angiography was performed in multiple views using a 5 Fr. 4.0 [place] catheter. Right Coronary Artery selective angiography was then performed in multiple views using a 5 Fr. 4.0 [place] catheter.The arterial sheath was pulled and a TR Band was applied for hemostasis CORONARY ANGIOGRAPHY DOMINANCE: Co- Dominant LEFT HEART ASSESSMENT Left Ventricular Ejection Fraction: by Echo 06/17/22 % Normal LV wall motion Normal Left Ventricular systolic function LEFT MAIN: Angiographically normal LEFT ANTERIOR DESCENDING ARTERY: Previously placed stent is patent DIAGONAL 1: Proximal - 50 % Stenosis CIRCUMFLEX ARTERY: Large vessel with 20 to 30% stenosis noted RIGHT CORONARY ARTERY: Mild luminal irregularities less than 30% COMPLICATIONS No Complications PROCEDURE MEDICATIONS Fentanyl 50 mcg IV Versed 1 mg IV Versed 1 mg IV Oxygen: 2 L/min via nasal cannula Heparin given IA 07/13/2022 08:10:53 Verapamil 2.5mg, Ntg 100mcgs, 3000 units of Heparin given IA 07/13/2022 08:10:53 SUMMARY OF HEMODYNAMIC DATA Time AIR REST ECG 07:14:24 AO 140/66 (97) SA 08:20:53 Signed By Gael Beth MD On 07/13/2022 08:44:23 Gael Beth MD
== END 2022-07-13 10:00 | disposition home or self-care (01) ==
LOC: CLSP 06:53
PROVIDERS: Referring Provider Internal Medicine Cardiovascular Disease; Visit Provider Internal Medicine Cardiovascular Disease
DX: I25.118 Atherosclerotic heart disease of native coronary artery with other forms of angina pectoris (principal); Z79.4 Long term (current) use of insulin; E11.9 Type 2 diabetes mellitus without complications; R94.39 Abnormal result of other cardiovascular function study; I25.2 Old myocardial infarction; Z95.5 Presence of coronary angioplasty implant and graft; Z79.82 Long term (current) use of aspirin; Z79.84 Long term (current) use of oral hypoglycemic drugs; Z79.899 Other long term (current) drug therapy; Z87.891 Personal history of nicotine dependence
CPT/HCPCS: 93454; 99152; 99153; J7040; C1769; C1894; Q9967

== ENCOUNTER → 2022-08-18 | Outpatient (CLI) | payer OTHER, SELFPAY ==
[2022-08-18 16:30] LABS: Thyroid Stim Hormone (TSH) 1.32 uIU/mL (0.358-3.74)
== END | disposition home or self-care (01) ==
LOC: LAB 15:08
PROVIDERS: Referring Provider Internal Medicine Cardiovascular Disease; Visit Provider Internal Medicine Cardiovascular Disease
DX: R07.9 Chest pain, unspecified (principal); R94.39 Abnormal result of other cardiovascular function study; R00.2 Palpitations
CPT/HCPCS: 36415; 84443

== ENCOUNTER → 2022-08-20 | Outpatient (CLI) | payer OTHER, SELFPAY ==
--- NOTE | 2022-08-20 08:00 | MRI_ITS ---
ACR Level 3 findings have been noted. An addendum which confirms receipt of the report will follow. STUDY: MRI CERVICAL SPINE WITHOUT CONTRAST REASON FOR EXAM: Male, 67 years old. chronic neck pain, shoulder pain,fusion TECHNIQUE: Standardized fat and water weighted pulse sequences were obtained in the sagittal and axial planes. COMPARISON: None FINDINGS: Normal foramen magnum and brainstem-cervical cord junction. Normal craniovertebral junction. Normal anterior atlantoaxial articulation. Normal odontoid process. There is reversal of the normal cervical lordosis. Normal vertebral bodies and posterior osseous elements. C2-3: Normal endplates. Normal disc height, signal and morphology. Normal central canal and intervertebral neural foramina. C3-4: Spondylitic endplates. Normal disc height, signal and morphology. Normal central canal and narrowed intervertebral neural foramina. C4-5: Normal endplates. Normal disc height, signal and morphology. Normal central canal and narrowed intervertebral neural foramina. C5-6: Central small posterior disc marginal osteophyte encroaches upon the cord.. Normal disc height, signal and morphology. Normal central canal and intervertebral neural foramina. Anterior plate and screws with disc prosthesis. C6-7: Moderate central posterior disc marginal osteophyte encroaches upon the cord. Normal disc height, signal and morphology. Normal central canal and intervertebral neural foramina. Anterior plate and screws with disc prosthesis. C7-T1: Normal endplates. Normal disc height, signal and morphology. Normal central canal and intervertebral neural foramina. small foci of T2 lengthening noted within the cord at C6-7 level. Normal visualized soft tissue structures. MRI/Spine Cervical (Routine) IMPRESSION: Anterior cervical disc fusion C5-6 and 7. 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 Neurosurgical consultation recommended. Electronically Signed: Marco Nicolas MD at 0:03 EDT Reading Location ID and State: [address] [place] [address] , Service support ,
--- NOTE | 2022-08-20 08:45 | MRI_ITS ---
STUDY: MRI LUMBAR SPINE WITHOUT CONTRAST REASON FOR EXAM: Male, 67 years old. CHRONIC,WORSENING LBP TECHNIQUE: Standardized fat and water weighted pulse sequences were obtained in the sagittal and axial planes. COMPARISON: None FINDINGS: Slight anterior wedging T12 without retropulsion or bone marrow edema. T12-L1: Spondylitic endplates. Normal disc height, hydration. Normal bilateral facet joints. Normal central canal and bilateral lateral recesses. Normal bilateral intervertebral neural foramina. Normal lumbar lordosis. There is no substantial scoliosis. Normal conus medullaris that terminates at the L1 level. L1-2: Normal endplates. Small central posterior disc marginal osteophyte.. Normal bilateral facet joints. Normal central canal and bilateral lateral recesses. Narrowed bilateral intervertebral neural foramina. L2-3: Spondylitic endplates. Normal disc height, hydration and morphology. Normal bilateral facet joints. Normal central canal and bilateral lateral recesses. Narrowed bilateral intervertebral neural foramina. L3-4: Spondylitic endplates. Normal disc height, hydration and morphology. Normal bilateral facet joints. Normal central canal and bilateral lateral recesses. Narrowed bilateral intervertebral neural foramina. L4-5: Spondylitic endplates. Normal disc height, hydration and morphology. Normal bilateral facet joints. Normal central canal and bilateral lateral recesses. Narrowed bilateral intervertebral neural foramina. L5-S1: Normal endplates. Normal disc height, hydration and morphology. Normal bilateral facet joints. Normal central canal and bilateral lateral recesses. Normal bilateral intervertebral neural foramina. Bilateral pedicular screws and magnetic susceptibility artifact at L5 and S1. Possible right hemilaminectomy at S1. Normal visualized sacral ala. Normal visualized paraspinous soft tissue structures. MRI/Spine Lumbar (Routine) IMPRESSION: Posterior interbody fusion L5-S1. Multilevel disc marginal osteophytes and neural foraminal narrowing bilaterally. Mild remote compression fracture at T12. Electronically Signed: Marco Nicolas MD at 16:21 EDT Reading Location ID and State: [facility] / [place] , Service support ,
== END | disposition home or self-care (01) ==
LOC: MRI 07:32
DX: M54.9 Dorsalgia, unspecified (principal); G89.29 Other chronic pain; M54.10 Radiculopathy, site unspecified
CPT/HCPCS: 72141; 72148

== ENCOUNTER → 2022-09-02 | Outpatient (CLI) | payer OTHER, SELFPAY | END | disposition home or self-care (01) | PROVIDERS: Referring Provider Internal Medicine Cardiovascular Disease; Visit Provider Internal Medicine Cardiovascular Disease | DX: R00.2 Palpitations (principal) | CPT/HCPCS: 93225; 93226 ==

== ENCOUNTER → 2023-12-19 | Outpatient (CLI) | payer OTHER, SELFPAY ==
[2023-12-19 10:42] LABS: Hematocrit 35.1 % (40-54); Hemoglobin 11.1 g/dL (13.0-16.5); Mean Corp Hgb Conc 31.6 g/dL (32-36); Mean Corpuscular Hgb 30.1 pg (27.0-32.0); Mean Corpuscular Volume 95.1 fL (80-94); Mean Platelet Vol. 9.9 fl (6.2-12.0); Platelet Count 193 K/mm3 (150-450); RBC Distribution Width CV 13.3 % (11.6-14.6); RBC Distribution Width SD 46.3 fl (35.1-43.9); Red Blood Count 3.69 M/mm3 (4.6-6.2); White Blood Count 9.7 K/mm3 (4.4-11.0)
[2023-12-19 11:10] LABS: ALB/GLOB Ratio 0.9 RATIO (0.9-2.4); AST(SGOT) 13 U/L (15-37); Alanine Aminotransfer ALT/SGPT 16 U/L (16-61); Albumin, Serum 3.3 g/dL (3.2-5.0); Alkaline Phosphatase 68 U/L (45-117); Anion Gap 3 (5-15); BUN 12 mg/dL (7-18); BUN/Creat Ratio 18.5 RATIO (10-20); Calcium,Total 9.5 mg/dL (8.5-10.1); Chloride 106 mmol/L (98-107); Creatinine, Serum 0.65 mg/dL (0.70-1.30); EST Glomerular Filtration Rate 130 mL/min (>60); Est Glom Filt Rate - Afr Amer 157 mL/min (>60); Globulin 3.6 g/dL (2.2-4.2); Glucose 153 mg/dL (74-106); Potassium 4.2 mmol/L (3.5-5.1); Protein, Total 6.9 g/dL (6.4-8.2); Sodium Level 139 mmol/L (136-145)
--- NOTE | 2023-12-20 14:32 | TILTTABLE_ITS ---
Staff Staff: Farida Nath and Fanta Jennings Summary Pre Test Resting HR: 56 Pre Test Resting BP: 116/65 Minimum Test HR: 49 Maximum Test HR: 84 Minimum Test BP: 57/42 Maximum Test BP: 118/58 Physician Tilt Table Report Patient's Physicians [facility] Indications/Diagnosis: Dizziness Procedure Comments: Patient was brought to the noninvasive lab in the postabsorptive nonsedated state. Informed consent was obtained. Initial heart rate and blood pressure were obtained with a heart rate of 56 bpm and the blood pressure 116/65 mmHg. The patient was then put in the 70 degree head upright tilt position. This was for 20 minutes. Patient maintained adequate blood pressure and heart rate. The patient was then put in the recumbent position and then administered 0.4 mg of subcu nitroglycerin. The patient was then put back in the 70 degree head upright tilt position again. Blood pressures were then noted to decrease from 108/61 to a shereen of 57/42 with the patient being clammy and lightheaded and restless. The patient was then put back in the recumbent position given intravenous fluid bolus with improvement. Summary: Orthostatic hypotension with response to sublingual nitroglycerin.
[2023-12-20 14:36] VITALS: BP 116/65
[2023-12-20 14:40] VITALS: BP 57/42
[2023-12-20 14:43] VITALS: BP 118/58
== END | disposition home or self-care (01) ==
PROVIDERS: Nurse Practitioner Gerontology; Referring Provider Psychiatry & Neurology Neurology; Visit Provider Psychiatry & Neurology Neurology
DX: R55 Syncope and collapse (principal)
CPT/HCPCS: 36415; 80053; 85027; 93660; J7040; A4216

== ENCOUNTER → 2024-01-03 | Outpatient (CLI) | payer OTHER, SELFPAY ==
--- NOTE | 2024-01-03 12:40 | MRI_ITS ---
HISTORY: SPONDYLOSIS, PAIN INTO BILATERAL LEGS. TECHNIQUE: Multiplanar and multisequence MR images of the lumbar spine were obtained without intravenous contrast. 192 images. COMPARISON: 08/20/2022. FINDINGS: Motion artifact lowers the sensitivity of the examination. VERTEBRAE: Chronic minimal anterior wedging of T11 and T12. Lumbar vertebral body heights maintained. Mild degenerative endplate changes. Artifact from L5-S1 posterior spinal fusion hardware. No other significant bone marrow signal abnormality. ALIGNMENT: No anterior or posterior subluxation. Mild levoscoliosis. CONUS: Normal morphology and position of the conus medullaris at T12-L1. INTERVERTEBRAL DISCS: Mild disc bulges with facet arthropathy at multiple levels. T12-L1: Mild central canal stenosis and very mild bilateral foraminal narrowing based on the sagittal images. L1-2: Mild central canal stenosis and mild-moderate bilateral foraminal narrowing, mildly increased from prior. L2-3, L3-4: Mild central canal stenosis and moderate bilateral foraminal narrowing, similar to prior. L4-5: No significant central canal stenosis. Moderate-severe left foraminal narrowing with probable L4 nerve root impingement and moderate right foraminal narrowing, similar to prior. L5-S1: Decompressive laminectomy. No significant central canal stenosis. Very mild bilateral foraminal narrowing, unchanged. SOFT TISSUES: No paraspinal fluid collection. MRI/Spine Lumbar (Routine) IMPRESSION: Motion artifact. Multilevel degenerative disc disease as above. L5-S1 posterior spinal fusion. Electronically Signed: Jesika Domínguez MD at 9:19 EDT ,
== END | disposition home or self-care (01) ==
LOC: MRI 12:31
PROVIDERS: Referring Provider Neurological Surgery; Visit Provider Neurological Surgery
DX: M54.9 Dorsalgia, unspecified (principal); M79.606 Pain in leg, unspecified
CPT/HCPCS: 72148

== ENCOUNTER → 2024-07-03 | Outpatient (CLI) | payer OTHER, SELFPAY ==
--- NOTE | 2024-07-03 14:10 | CT_ITS ---
PROCEDURE: CT CHEST, ABD, PEL W/CONTRAST (CTCHAP), 07/03/2024 REASON FOR EXAM: UNINTENTIONAL WEIGHT LOSS TECHNIQUE: CT chest, abdomen, and pelvis was performed with IV contrast. Multiplanar reformats were generated. IV Contrast: Isovue 370 VOLUME: 95mL Oral contrast: Readi-CAT; dose information not provided. RADIATION DOSE SUMMARY: CTDlvol: 7.60+ 13.77+ 16.81 mGy DLP: 1447.36 mGycm One or more dose reduction techniques were used (e.g., Automated exposure control, adjustment of the mA and/or kV according to patient size, use of iterative reconstruction technique). COMPARISON: No prior CT FINDINGS: Artifact related to lumbar spinal fusion hardware. Heart/pericardium: Severe three-vessel coronary atherosclerosis and/or stents. Trace aortic annular calcification.. Aorta: Mild/moderate atherosclerosis. Pulmonary arteries: Normal in caliber. Lymph nodes: Unremarkable. Lungs/pleura: Minimal atelectasis/scarring. Vaguely nodular ground-glass opacity in the subpleural RIGHT lower lobe measures 24 x 9 mm (series 6 image 88). 4 mm additional RIGHT lower lobe nodule (image 66). LEFT lower lobe micronodule is up to 4 mm (image 86). Airways: Unremarkable. Chest wall: Subcentimeter RIGHT lobe thyroid nodules. Liver: Unremarkable. Spleen: Unremarkable. Gallbladder: Cholecystectomy. Pancreas: Few pancreatic hypodensities up to 15 mm. No ductal dilatation. Adrenals: Unremarkable. Kidneys: RIGHT renal cysts and additional bilateral hypodensities too small to characterize, likely additional cysts.. Mild symmetric nonspecific perinephric stranding. Bowel: Moderate to high colonic stool burden with dilatation of the transverse colon 5.8 cm. Focal rectosigmoid colonic wall thickening versus underdistention.. Suspect appendectomy. Cecum located in the RIGHT mid to upper abdomen suggesting hypermobility. Lymph nodes: Unremarkable. Vasculature: Cskkykzi-bz-qgidhm atherosclerosis. Focal stenosis of the LEFT common femoral artery, suboptimally evaluated, likely at least moderate. Peritoneum: Unremarkable. Bladder: Underdistended and suboptimally evaluated. Mild mass-effect by the enlarged prostate otherwise grossly unremarkable. Reproductive Organs: Prostatomegaly with nonspecific heterogeneous appearance. Body Wall: Operative changes.. Musculoskeletal: Demineralization. Mild spondylosis. Trace thoracic scoliosis may be positional. Partially imaged ACDF. Partially imaged changes of RIGHT rotator cuff repair. Lumbar spinal fusion and laminectomy. Trace grade 1 likely degenerative anterolisthesis at L5-S1. Mild lumbar levoscoliosis. Degenerative changes of the SI joints including ankylosis anteriorly. CT/CT Chest, Abd, Pel w/Contrast IMPRESSION: 1. High colonic stool burden with mild dilatation, suggesting ileus/constipatio n. 2. Focal rectosigmoid colonic wall thickening versus underdistention. Recommen d clinical follow-up such as updated colonoscopy to exclude underlying colonic lesion. 3. Pulmonary nodules as above, largest ground-glass nodule in the RIGHT lower l obe measures 16.5 mm average axial diameter but could reflect a nodular appearance of atelectasis/scarring. Recommend CT chest in 6-12 months and subsequently every 2 years if persistent to establish 5 years of stability per the Fleischner recommendations , presuming no history of known malignancy or immunosuppression. 4. Pancreatic hypodense lesions up to 15 mm, incompletely characterized by CT b ut probably reflecting cystic neoplasm such as IPMN. Recommend further characterization multiphase pancreatic protocol MRI ab domen with and without contrast, with MRCP. No ductal dilatation. 5. Prostatomegaly with nonspecific heterogeneous appearance. Correlate with PSA . 6. Additional description as above. Note that comparison with any available outside imaging may be helpful to evalu ate the stability of indeterminate findings in #3-4 above. Reading Location: [id number]
[2024-07-03 14:27] LABS: CREATININE FINGERSTICK < 1.0 mg/dL (0.70-1.30); EGFR FINGERSTICK > 60.0000 mL/min (>60)
== END | disposition home or self-care (01) ==
LOC: CT 13:49
DX: Z01.812 Encounter for preprocedural laboratory examination (principal); R63.4 Abnormal weight loss
CPT/HCPCS: 71260; 74177; Q9967

== ENCOUNTER 2024-07-16 07:14 | Day surgery (SDC) | payer OTHER, SELFPAY ==
--- NOTE | 2024-07-11 18:19 | PAT.ANESEVAL ---
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 When Was Last Pacemaker Check QUESTION #4 FULL TEXT: You/Your Family Experience fever (hyperthermia) with Anesthesia Last Oral Intake Last Oral intake: Last Oral Intake NPO since Meds taken in AM with sips of water? Meds patient instructed to take am of surgery PONV PONV - endoscopy technician: PONV - endoscopy technician Female No 07/11/24 09:31 HX of Motion Sickness No 07/11/24 09:31 HX of N/V After Surgery No 07/11/24 09:31 Non-Smoker Yes 07/11/24 09:31 Duration of Surgery greater No 07/11/24 09:31 than 60 minutes Number of Risk Factors 1 07/11/24 09:31 PONV Score Low Risk 07/11/24 09:31 Height & Weight Height & Weight: Anesthesia: Height & Weight Height 6 ft 2 in 06/20/24 13:10 Respiratory Assessment Respiratory Assessment - endoscopy technician: Respiratory Tract Infection Hx - endoscopy technician Hx Respiratory Tract Infection No 07/11/24 09:31 STOP Sleep Apnea STOP Sleep Apnea - endoscopy technician: STOP Sleep Apnea - endoscopy technician Hx Hypertension No 07/11/24 09:31 Hx Sleep Apnea Yes: NO MACHINE, PT STATES 07/11/24 09:31 HE WOULDNT USE IT CPAP No 07/11/24 09:31 BIPAP No 07/11/24 09:31 Do you snore loudly (louder than talking or can be heard Do you often feel tired/ fatigued/ sleepy during daytime? Has anyone observed you stop breathing during sleep? STOP Results Positive 07/11/24 09:31 QUESTION #5 FULL TEXT : Do you snore loudly (louder than talking or can be heard through closed doors)? 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 Specify any problems Hx of Preganancy in last 3 N/A 07/11/24 09:31 Months Nurse Filling Out Transfusion NBUCHER 07/11/24 09:31 & Questions: Date: 07/11/24 07/11/24 09:31 Time: 09:32 07/11/24 09:31 Patient unable to answer at this time (ie. confused, unrespo /Reproduction History /Reproductive History - endoscopy technician: /Reproductive Hx- endoscopy technician Hx Now No 07/11/24 09:31 Gestational Age (in weeks): EDC: Hx Hx Para Hx Section SAB No 07/11/24 09:31 [facility], [facility] Medical History (Updated 07/11/24 @ 09:41 by Umm Chan) COPD (chronic obstructive pulmonary disease) Wears partial dentures Wears glasses Cancer Insulin dependent diabetes mellitus Arthritis High cholesterol Sleep apnea Former smoker Shortness of breath on exertion History of Holter monitoring History of tilt table evaluation History of echocardiogram History of stress test Cardiology follow-up encounter GERD (gastroesophageal reflux disease) Palpitations Coronary artery disease Atypical chest pain Chronic ischemic heart disease Abnormal stress test Hyperlipidemia Type 2 diabetes mellitus without complication GEORGETTE (obstructive sleep apnea) Atherosclerosis of coronary artery of [place] heart without angina pectoris Chest pain Myocardial infarction Home Medications ?Medication ?Instructions ?Recorded ?Last Taken ?Type insulin glargine 100 unit/mL (3 18 units subcut DAILY diabetes 04/28/16 02/21/20 History mL) subcutaneous pen (Lantus Solostar U-100 Insulin) metformin 1,000 mg tablet 1,000 mg PO BIDCM diabetes 04/28/16 02/21/20 History vitamin B comp and C no.3 15 mg-10 1 cap PO DAILY supplement 04/28/16 02/21/20 History mg-50 mg-5 mg-300 mg capsule (B Complex Plus Vitamin C) multivitamin with minerals 1 ea PO DAILY supplement 02/21/20 02/21/20 History aspirin 81 mg tablet,delayed 81 mg PO DAILY 06/30/22 07/13/22 History release (Adult Low Dose Aspirin) calcium carbonate 650 mg PO BID 06/30/22 Unknown History camphor 3.1 %-methyl salicylate 15 1 ea topical DAILY 06/30/22 Unknown History %-menthol 10 % topical gel cholecalciferol (vitamin D3) 50 50 mcg PO DAILY 06/30/22 Unknown History mcg (2,000 unit) tablet cinnamon bark 500 mg capsule 1,000 mg PO BID supplement 06/30/22 Unknown History duloxetine 30 mg capsule,delayed 90 mg PO DAILY 06/30/22 Unknown History release omeprazole 20 mg capsule,delayed 40 mg PO DAILY 06/30/22 Unknown History release atorvastatin 80 mg tablet 40 mg PO QHS 07/04/22 Unknown History gabapentin 300 mg capsule 600 mg PO TID 07/04/22 Unknown History omega-3 fatty acids 1,000 mg 2,000 mg PO BID 07/04/22 Unknown History capsule ixekizumab 80 mg/mL subcutaneous 80 mg subcut Q4W 11/08/23 Unknown History auto-injector (Taltz Autoinjector) Allergy/AdvReac Type Severity Reaction Status Date / Time No Known Allergies Allergy Verified 07/11/24 09:27 Family History Mother Diabetes Brother Hypertension Surgical History History of cardiac catheterization History of esophagogastroduodenoscopy (EGD) History of colonoscopy History of cholecystectomy History of back surgery (~03/2024) Hx of neck surgery History of shoulder surgery History of colon resection History of coronary artery stent placement (03/30/16) Social History Smoking Status: Former smoker how long ago did patient quit smokin alcohol intake: current alcohol intake frequency: holidays/special occasions only substance use type: does not use caffeine: Yes Type: carbonated beverages and coffee Audit: Pertinent Findings Pertinent Findings EKG Perinent findings: 02/21/2020. Normal sinus rhythm. Low voltage QRS. Stress test pertinent findings: 06/17/2022. EF is 63%. Fixed inferior and apical defects. Inferior and lateral reversible myocardial ischemia. (See cath below) Echo (EF%) pertinent findings: March 14, 2019. EF of 60%. PASP of 30 mmHg. No aortic stenosis. Heart catheterization pertinent findings: 07/13/2022. Nonobstructive coronary arteries. Previously placed LAD stent is patent. Consult pertinent findings: 02/06/2024. Dr. Deng. 1. Kaaptrf-[id number] tilt table test with marked positive orthostatic hypotension. Advised to increase fluid and salt intake. Wear compression stockings. Advised to stop lisinopril-patient refuses. Also refuses to start on midodrine. Advised not to drive for a month free of syncopal episode. 2. Coronary artery disease?chronic?status post stent placement in the LAD?patent. Continue aspirin Additional pertinent findings: 12/20/2023. Tilt table test. Positive for orthostatic hypotension with nitroglycerin. April 17, 2018. Holter-sinus rhythm. No significant arrhythmias. No diary submitted. Recommendation Anesthesia Recommendation Anesthesia recommendation: OPTIMIZED for anesthesia
[2024-07-16] VITALS (8 sets, daily range): BP systolic 88–151; BP diastolic 51–68; PULSE 16–62; RESP 16–18; TEMP 36.4–36.6; O2SAT 94–100; BMI 22.7
[2024-07-16] MEDS: Lactated Ringers 1,000 ML 15 ML IV (07:45)
--- NOTE | 2024-07-16 08:23 | PRE.ANES_ITS ---
ASA Classification* ASA Classification ASA Classification: 3 Assessment & Plan Anesthesia* Anesthesia Assessment Anesthesia Assessment: Discussed sedation and/or anesthesia options, risks, benefits, and alternatives with patient/parents/legal guardian/POA. Questions invited. The patient/parents/legal guardian/POA seems to understand and agrees to proceed with anesthesia plan. Reviewed the physical assessment, medical history, allergy history and patient home medications list prior to surgery/procedure/anesthetic and documented any changes. Performed airway and anesthesia risk assessments. Anesthesia Type Anesthesia Type: MAC History Source History Obtained from:: Patient and Chart Anesthesia Focused Assessment* Temperature: 97.9 F Pulse Rate: 56 Blood Pressure: 151/68 Respiratory Rate: 16 Pulse Ox: 100 Oxygen Delivery Method: Room Air Airway Assessment Mouth opens: >3 cm Mallampati Score: II Teeth Condition: Lower, Partial and Upper Focused Labs Anesthesia Preop lab: CBC WBC 9.7 K/mm3 (4.4-11.0) 12/19/23 10:12/19/23 RBC 3.69 M/mm3 (4.6-6.2) L 12/19/23 10:32 12/19/23 Hgb 11.1 g/dL (13.0-16.5) L 12/19/23 10:32 4 Hct 35.1 % (40-54) L 12/19/23 10:32 12/19/23 Plt Count 193 K/mm3 (150-450) 12/19/23 10:32 12/19/23 CHEMISTRY Potassium 4.2 mmol/L (3.5-5.1) 12/19/23 10:32 12/19/23 Sodium 139 mmol/L (136-145) 12/19/23 10:32 12/19/23 BUN 12 mg/dL (7-18) 12/19/23 10:32 12/19/23 Creatinine 0.65 mg/dL (0.70-1.30) L 12/19/23 10:32 Glucose 153 mg/dL (74-106) H 12/19/23 10:32 12/19/23 POC Glucose 189 mg/dL (70-110) H 02/22/20 06:51 02/22/20 TSH 1.32 uIU/mL (0.358-3.74) 08/18/22 15:08 COAG Pre-Assessment Diagnosis/Proposed Procedure Planned Operative Procedure(s): EGD Anesthesia History 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 When Was Last Pacemaker Check QUESTION #4 FULL TEXT: You/Your Family Experience fever (hyperthermia) with Anesthesia Last Oral Intake Last Oral intake: Last Oral Intake NPO since 21:00 07/16/24 07:50 Meds taken in AM with sips of No 07/16/24 07:50 water? Meds patient instructed to take am of surgery PONV PONV - law enforcement officer: PONV - law enforcement officer Female No 07/11/24 09:31 HX of Motion Sickness No 07/11/24 09:31 HX of N/V After Surgery No 07/11/24 09:31 Non-Smoker Yes 07/11/24 09:31 Duration of Surgery greater No 07/11/24 09:31 than 60 minutes Number of Risk Factors 1 07/11/24 09:31 PONV Score Low Risk 07/11/24 09:31 Height & Weight Height & Weight: Anesthesia: Height & Weight Height 6 ft 2 in 07/16/24 07:50 Weight: 80.286 kg 07/16/24 07:50 Body Mass Index (BMI) 22.7 07/16/24 07:50 Respiratory Assessment Respiratory Assessment - law enforcement officer: Respiratory Tract Infection Hx - law enforcement officer Hx Respiratory Tract Infection No 07/11/24 09:31 STOP Sleep Apnea STOP Sleep Apnea - law enforcement officer: STOP Sleep Apnea - law enforcement officer Hx Hypertension No 07/11/24 09:31 Hx Sleep Apnea Yes: NO MACHINE, PT STATES 07/11/24 09:31 HE WOULDNT USE IT CPAP No 07/11/24 09:31 BIPAP No 07/11/24 09:31 Do you snore loudly (louder than talking or can be heard Do you often feel tired/ fatigued/ sleepy during daytime? Has anyone observed you stop breathing during sleep? STOP Results Positive 07/11/24 09:31 QUESTION #5 FULL TEXT : Do you snore loudly (louder than talking or can be heard through closed doors)? 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 Specify any problems Hx of Preganancy in last 3 N/A 07/11/24 09:31 Months Nurse Filling Out Transfusion NBUCHER 07/11/24 09:31 & Questions: Date: 07/11/24 07/11/24 09:31 Time: 09:32 07/11/24 09:31 Patient unable to answer at this time (ie. confused, unrespo /Reproduction History /Reproductive History - law enforcement officer: /Reproductive Hx- law enforcement officer Hx Now No 07/11/24 09:31 Gestational Age (in weeks): EDC: Hx Hx Para Hx Section SAB No 07/11/24 09:31 Active Medications Active Medications: Current Medications Generic Name Dose Route Start Last Admin Trade Name Freq PRN Reason Stop Dose Admin Lactated Ringer's 1,000 mls @ 15 mls/hr 07/16/24 07:30 07/16/24 07:45 IV 15 mls/hr .Q48H EVANGELINA Administration PFSH Medical History COPD (chronic obstructive pulmonary disease) Wears partial dentures Wears glasses Cancer Insulin dependent diabetes mellitus Arthritis High cholesterol Sleep apnea Former smoker Shortness of breath on exertion History of Holter monitoring History of tilt table evaluation History of echocardiogram History of stress test Cardiology follow-up encounter GERD (gastroesophageal reflux disease) Palpitations Coronary artery disease Atypical chest pain Chronic ischemic heart disease Abnormal stress test Hyperlipidemia Type 2 diabetes mellitus without complication GEORGETTE (obstructive sleep apnea) Atherosclerosis of coronary artery of [place] heart without angina pectoris Chest pain Myocardial infarction Home Medications ?Medication ?Instructions ?Recorded ?Last Taken ?Type insulin glargine 100 unit/mL (3 18 units subcut DAILY diabetes 04/28/16 02/21/20 History mL) subcutaneous pen (Lantus Solostar U-100 Insulin) metformin 1,000 mg tablet 1,000 mg PO BIDCM diabetes 0 04/28/16 02/21/20 History vitamin B comp and C no.3 15 mg-10 1 cap PO DAILY supp lement 04/28/16 02/21/20 History mg-50 mg-5 mg-300 mg capsule (B Complex Plus Vitamin C) multivitamin with minerals 1 ea PO DAILY supplement 02/21/20 History aspirin 81 mg tablet,delayed 81 mg PO DAILY 06/30/22 0 07/13/22 History release (Adult Low Dose Aspirin) calcium carbonate 650 mg PO BID 06/30/22 Unkno wn History camphor 3.1 %-methyl salicylate 15 1 ea topical DAILY 06/30/22 Unknown History %-menthol 10 % topical gel cholecalciferol (vitamin D3) 50 50 mcg PO DAILY Unknown History mcg (2,000 unit) tablet cinnamon bark 500 mg capsule 1,000 mg PO BID supplemen t 06/30/22 Unknown History duloxetine 30 mg capsule,delayed 90 mg PO DAILY Unknown History release omeprazole 20 mg capsule,delayed 40 mg PO DAILY Unknown History release atorvastatin 80 mg tablet 40 mg PO QHS 07/04/22 Unknow n History gabapentin 300 mg capsule 600 mg PO TID 07/04/22 Unkno wn History omega-3 fatty acids 1,000 mg 2,000 mg PO BID 07/04/22 Unknown History capsule ixekizumab 80 mg/mL subcutaneous 80 mg subcut Q4W 06/27 Unknown History auto-injector (Taltz Autoinjector) Allergy/AdvReac Type Severity Reaction Status Date / Time No Known Allergies Allergy Verified 07/16/24 07:42 Family History Mother Diabetes Brother Hypertension Surgical History History of cardiac catheterization History of esophagogastroduodenoscopy (EGD) History of colonoscopy History of cholecystectomy History of back surgery (~03/2024) Hx of neck surgery History of shoulder surgery History of colon resection History of coronary artery stent placement (03/30/16) Social History Smoking Status: Former smoker how long ago did patient quit smokin alcohol intake: current alcohol intake frequency: holidays/special occasions only substance use type: does not use caffeine: Yes Type: carbonated beverages and coffee Review of Systems (Anesthesia) ROS Narrative System reviewed and no additional complaints, except as documented. Physical Exam Const alert and oriented x3 HEENT Teeth and Gingiva: dentures and poor dentition Resp normal respiratory effort Cardio regular rate and regular rhythm Neuro oriented x3 and moves all extremities
--- NOTE | 2024-07-16 08:30 | EGD_PTH ---
PATIENT: TYREE GARCIA LOC: EN U#:[id number] AGE/SX: 69/M ROOM: RE07/16/[address]: Dr. Carlito Vega MD : 1955 BED: DIS: 07/16/2024 SPEC #: [id number] RECD: 07/16/24 12:10 STATUS: MIGUEL ARUNA #: [id number] PERCY: 07/16/24 08:[address]: Carlito Vega DEPT: SURGICAL PATHOLOGY RECD BY: Neftali Coats ENTERED: 07/16/24 13:08 SP TYPE: EGD BIOPSY JOSEPH DR: [facility] Tissues: A - Gastric mucous membrane Procedures: Immunohistochemical Stains Surgery Specimen Level IV HEADER OPERATION: EGD with biopsies PRE-OP DIAGNOSIS: Gastroesophageal reflux disease TISSUE SUBMITTED: A- Antrum biopsy MICROSCOPIC DIAGNOSIS A. Stomach, antrum, biopsy: * Antral mucosa with mild chronic inflammation * No morphologic evidence of Helicobacter pylori organisms identified on H&E and immunostained sections COMMENT All matched controls reacted appropriately. These tests were developed and their performance characteristics determined by [facility]. They may not have been cleared or approved by the U.S. Food and Drug Administration. The FDA has determined that such clearance or approval is not necessary. The above immunohistochemical/dualISH markers are ordered and reviewed by the Pathologist. MICROSCOPIC DESCRIPTION Slides are reviewed. GROSS DESCRIPTION A. Received in fixative is one container labeled with the patient's name and designated Antrum biopsy. The specimen consists of two irregular fragments of light steward soft tissue that in aggregate measure 1 x 0.3 x 0.2 cm. The specimen is totally submitted in one cassette. 07/16/2024 CPT:53215,77327
--- NOTE | 2024-07-16 08:32 | HP.PCM_ITS ---
History and Physical Date of Admission: 07/16/24 Intake Vital Signs 02/06/2408:46 06/20/2512:10 Height 6 ft 2 in 6 ft 2 in Weight: 179 lb 176 lb BMI 22.9 22.6 BP 110/65 151/77 H Blood Pressure Location Lt brachial Rt brachial Position Sitting Sitting Respiration 18 18 Pulse 58 L 80 Pulse Source NIBP Monitor Temp 97.2 F L Temp Source Temporal Pulse Oximetry (%) 94 Oxygen Delivery Method room air Intake Visit Reasons: Gastroesophageal reflux disease (GERD) Chief Complaint: GERD Is patient in pain?: No Allergies No Known Allergies Allergy (Verified 06/20/24 13:10) Have you fallen in the past year?: Yes [facility] Medical History (Updated 06/20/24 @ 13:10 by Domonique Avilez LPN) GERD (gastroesophageal reflux disease) Palpitations Coronary artery disease Atypical chest pain Chronic ischemic heart disease Abnormal stress test Hyperlipidemia Type 2 diabetes mellitus without complication GEORGETTE (obstructive sleep apnea) Atherosclerosis of coronary artery of [place] heart without angina pectoris Chest pain Myocardial infarction Surgical History History of back surgery Hx of neck surgery History of shoulder surgery History of colon resection History of coronary artery stent placement (03/30/16) Family History Mother DiabetesBrother Hypertension Social History Smoking Status: Former smoker how long ago did patient quit smokin alcohol intake: current alcohol intake frequency: holidays/special occasions only substance use type: does not use caffeine: Yes Type: carbonated beverages and coffee HPI HPI HPI: Patient is a 69-year-old male here for epigastric pain. He says the epigastric pain is constant and sometimes get worse but it never goes away. He reports that food does not change it. He says he is also having a lot of belching and hiccuping. He has a lot of reflux as well. He is on omeprazole. ROS General General: Yes weight change (loss), fatigue and colon cancer; No appetite, breast cancer or weakness HEENT HEENT: No difficulty swallowing, eye injury, eye surgery, swollen glands or hoarseness Endo Endocrine: Yes diabetes mellitus; No thyroid disease, thyroid cancer, Hair loss, heat intolerance or cold intolerance Skin Skin: No rash or changing moles Musc Musculoskeletal: Yes back problems and arthritis; No rheumatoid arthritis, gout or joint pain Cardio Cardiovascular: Yes heart attack and heart stent; No murmur, pacemaker, heart disease, atrial fibrillation, high blood pressure, palpitations, shortness of breath with exertion or chest pain Psych Psychiatric: No depression, anxiety or hearing voices Resp Respiratory: No shortness of breath, Yes sleep apnea, Yes cough, Yes COPD, No asthma, No emphysema and No wheezing Gastro Gastrointestinal: Yes abdominal pain, Yes nausea or vomiting, Yes diarrhea, Yes constipation, No blood in stool, Yes acid reflux, No hemorrhoids, No ulcers, Yes gallbladder problem and No black,tarry stools [place] Hematologic: No blood thinners, No blood disorders, No bleeding, No anemia and No blood clots Neuro Neurologic: No numbness, No tingling and No weakness Exam Const General: cooperative Orientation: alert and oriented x3 HENMT Head: normal to inspection Neck Neck: normal visual inspection and full ROM Chest Chest palpation & inspection: normal inspection of the chest Resp Effort & Inspection: normal respiratory effort Auscultation: clear to auscultation bilaterally Cardio Rate: regular rate Rhythm: regular rhythm GI Inspection: non-distended Palpation: soft and nontender Skin General: no rashes or lesions noted Neuro General: patient alert and patient oriented x3 Extrem General: full ROM Psych Appearance: grossly normal Mental Status: mental status grossly normal Assessment and Plan Assessment and Plan (1) Gastroesophageal reflux disease: Plan: Patient has GERD and epigastric pain. He is on omeprazole. Plan for EGD to evaluate his epigastric pain. He is already had a cholecystectomy. I explained endoscopy in detail to the patient. I explained the risks including but not limited to stroke or heart attack with anesthesia, perforation of the GI tract, bleeding, infection. I explained that any of these could necessitate further emergency surgery. The patient understands and all questions were answered sufficiently. The patient wishes to proceed with procedure. Plan to hold his aspirin for 5 days prior to the procedure. Carlito Vega MD Pager: [facility] [address] [place] [address], [address] [place] [address] Office: I have examined the patient and the H&P has been reviewed. There are no clinical changes since date of exam.
--- NOTE | 2024-07-16 08:55 | OP.EGD_ITS ---
Patient Name: Armin Hodge Procedure Date: 07/16/2024 8:39 AM Date of : 1955 Age: 69 Procedure: Upper GI endoscopy Indications: Epigastric abdominal pain Providers: Carlito Vega MD Referring MD: [facility] Medicines: Propofol per Anesthesia Patient Profile: This is a 69 year old male. Refer to note in patient chart for documentation of history and physical. Complications: No immediate complications. Estimated blood loss: Minimal. Procedure: Pre-Anesthesia Assessment: - Prior to the procedure, a History and Physical was performed, and patient medications and allergies were reviewed. The patient's tolerance of previous anesthesia was also reviewed. The risks and benefits of the procedure and the sedation options and risks were discussed with the patient. All questions were answered, and informed consent was obtained. Prior Anticoagulants: The patient has taken no anticoagulant or antiplatelet agents except for aspirin. After reviewing the risks and benefits, the patient was deemed in satisfactory condition to undergo the procedure. After obtaining informed consent, the endoscope was passed under direct vision. Throughout the procedure, the patient's blood pressure, pulse, and oxygen saturations were monitored continuously. The Endoscope was introduced through the mouth, and advanced to the third part of duodenum. The upper GI endoscopy was accomplished without difficulty. The patient tolerated the procedure well. Scope In: 8:46:28 AM Scope Out: 8:51:57 AM Total Procedure Duration Time 0 hours 5 minutes 29 seconds Findings: The esophagus was normal. The stomach was normal. The examined duodenum was normal. Biopsies were taken with a cold forceps in the gastric antrum for Helicobacter pylori testing. Impression: - Normal esophagus. - Normal stomach. - Normal examined duodenum. - Biopsies were taken with a cold forceps for Helicobacter pylori testing. Recommendation: - Discharge patient to home. - Resume previous diet. - Continue present medications. - Resume aspirin at prior dose tomorrow. - Await pathology results. Procedure Code(s): --- Professional --- 53183, Esophagogastroduodenoscopy, flexible, transoral; with biopsy, single or multiple Diagnosis Code(s): --- Professional --- R10.13, Epigastric pain CPT copyright 2021 [employer]. All rights reserved. The codes documented in this report are preliminary and upon inspector clip on sunglasses review may be revised to meet current compliance requirements. Carlito Vega MD 07/16/2024 8:54:56 AM This report has been signed electronically. Number of Addenda: 0 Note Initiated On: 07/16/2024 8:39 AM
--- NOTE | 2024-07-16 08:55 | OP.CCLET_ITS ---
07/16/2024 [facility] Re : Upper GI endoscopy procedure for [facility] This procedure was performed on Tuesday, July 16, 2024. My impressions and recommendations are as follows: Impressions : - Normal esophagus. - Normal stomach. - Normal examined duodenum. - Biopsies were taken with a cold forceps for Helicobacter pylori testing. Recommendations : - Discharge patient to home. - Resume previous diet. - Continue present medications. - Resume aspirin at prior dose tomorrow. - Await pathology results. My findings are described in the full procedure note, which is enclosed. If I can be of further assistance, please feel free to contact me at Doctor phone number(s): , Work: . Sincerely, Carlito Vega MD 07/16/2024 8:54:56 AM This report has been signed electronically.
--- NOTE | 2024-07-16 09:02 | PCM.POST.ANE ---
Anesthesia: Postop Eval I Current Vital Signs Temperature: 97.5 F Pulse Rate: 16 Blood Pressure: 88/51 Respiratory Rate: 16 Pulse Ox: 96 Oxygen Delivery Method: Room Air Assessment Airway patent: Yes Spontaneous unlabored respirations: Yes Mental status: Asleep nausea: No Vomiting: No Anesthesia Complication: No Fluid Hydration Crystalloid volume administer (ml): 300 Total IV fluid infused: 300 Progress Note Anesthesia document: Postop Eval 1 completed: Yes
[2024-07-16 09:48] LABS: Bedside Glucose 100 mg/dL (74-106)
--- NOTE | 2024-07-16 09:52 | PCM.POSTANE2 ---
Anesthesia Postop Eval I Sum Postop Eval Completion status Anesthesia document: Postop Eval 1 completed: Yes Anesthesia Postop Eval I Summary Anesthesia Postop Eval I Summary: Anesthesia Postop Eval I: Assessment Summary Airway patent Yes 07/16/24 09:03 [email or web address] Spontaneous unlabored Yes 07/16/24 09:03 [email or web address] respirations Mental status Asleep 07/16/24 09:03 [email or web address] nausea No 07/16/24 09:03 [email or web address] Vomiting No 07/16/24 09:03 [email or web address] Anesthesia Postop Eval I: Fluid Summary Crystalloid volume administer 300 07/16/24 09:03 [email or web address] (ml) Colloids volume administered ( ml) Blood Product volume administered (ml) Total IV fluid infused 300 07/16/24 09:03 [email or web address] Anesthesia Postop Eval I: Summary Notes Anesthesia Complication No 07/16/24 09:03 [email or web address] Anesthesia Complication Comment: Post-operative progress note Anesthesia: Postop Eval II Evaluation Mental status: Awake and Calm Pain Level: 0 nausea: No Vomiting: No Complications Anesthesia Complication: No
== END 2024-07-16 10:18 | disposition home or self-care (01) ==
LOC: EN 07:14 → AC 07:15
PROVIDERS: Visit Provider Surgery
PROC: 0DJ08ZZ Inspection of Upper Intestinal Tract, Via Natural or Artificial Opening Endoscopic (ICD-10-PCS; CPT 43235; principal; 2024-07-16 08:25)
DX: K29.50 Unspecified chronic gastritis without bleeding (principal); E11.9 Type 2 diabetes mellitus without complications; Z79.4 Long term (current) use of insulin; K21.9 Gastro-esophageal reflux disease without esophagitis; E78.5 Hyperlipidemia, unspecified; I25.10 Atherosclerotic heart disease of native coronary artery without angina pectoris; G47.33 Obstructive sleep apnea (adult) (pediatric); I25.2 Old myocardial infarction; Z79.82 Long term (current) use of aspirin; Z79.84 Long term (current) use of oral hypoglycemic drugs; Z79.899 Other long term (current) drug therapy; Z87.891 Personal history of nicotine dependence; Z95.5 Presence of coronary angioplasty implant and graft; Z90.49 Acquired absence of other specified parts of digestive tract
CPT/HCPCS: 43239; 82962; 88305; 88342; J2405

== ENCOUNTER 2025-01-22 14:16 | Day surgery (SDC) | payer OTHER, SELFPAY ==
--- NOTE | 2025-01-22 14:38 | PCM.HP.BLA ---
History and Physical Date of Admission: 01/22/25 Intake Vital Signs 07/16/2506:50 01/22/2513:38 Height 6 ft 2 in 6 ft 2 in Weight: 183 lb BMI 23.5 BP 172/77 H Blood Pressure Location Rt brachial Position Sitting Respiration 18 Pulse 56 L Pulse Source Monitor Temp 97.6 F L Temp Source Temporal Pulse Oximetry (%) 98 Oxygen Delivery Method room air Intake Visit Reasons: COLONOSCOPY Chief Complaint: colonoscopy Is patient in pain?: No Allergies No Known Allergies Allergy (Verified 01/22/25 13:39) Medications ?Medication ?Instructions ?Recorded ?Confirmed ?Type insulin glargine 100 unit/mL (3 18 units subcut DAILY diabetes 04/28/16 01/22/25 History mL) subcutaneous pen (Lantus Solostar U-100 Insulin) metformin 1,000 mg tablet 1,000 mg PO BIDCM diabetes 04/28/16 01/22/25 History vitamin B comp and C no.3 15 mg-10 1 cap PO DAILY supplement 04/28/16 01/22/25 History mg-50 mg-5 mg-300 mg capsule (B Complex Plus Vitamin C) multivitamin with minerals 1 ea PO DAILY supplement 02/21/20 01/22/25 History aspirin 81 mg tablet,delayed 81 mg PO DAILY 06/30/22 01/22/25 History release (Adult Low Dose Aspirin) calcium carbonate 650 mg PO BID 06/30/22 01/22/25 History camphor 3.1 %-methyl salicylate 15 1 ea topical DAILY 06/30/22 01/22/25 History %-menthol 10 % topical gel cholecalciferol (vitamin D3) 50 50 mcg PO DAILY 06/30/22 01/22/25 History mcg (2,000 unit) tablet cinnamon bark 500 mg capsule 1,000 mg PO BID supplement 06/30/22 01/22/25 History duloxetine 30 mg capsule,delayed 90 mg PO DAILY 06/30/22 01/22/25 History release omeprazole 20 mg capsule,delayed 40 mg PO DAILY 06/30/22 01/22/25 History release atorvastatin 80 mg tablet 40 mg PO QHS 07/04/22 01/22/25 History gabapentin 300 mg capsule 600 mg PO TID 07/04/22 01/22/25 History omega-3 fatty acids 1,000 mg 2,000 mg PO BID 07/04/22 01/22/25 History capsule ixekizumab 80 mg/mL subcutaneous 80 mg subcut Q4W 11/08/23 01/22/25 History auto-injector (Taltz Autoinjector) Have you fallen in the past year?: No PFSH Medical History (Updated 01/22/25 @ 14:06 by Latonya Valente) Personal history of colon cancer Abnormal CT of the abdomen COPD (chronic obstructive pulmonary disease) Wears partial dentures Wears glasses Cancer Insulin dependent diabetes mellitus Arthritis High cholesterol Sleep apnea Former smoker Shortness of breath on exertion History of Holter monitoring History of tilt table evaluation History of echocardiogram History of stress test Cardiology follow-up encounter GERD (gastroesophageal reflux disease) Palpitations Coronary artery disease Atypical chest pain Chronic ischemic heart disease Abnormal stress test Hyperlipidemia Type 2 diabetes mellitus without complication GEORGETTE (obstructive sleep apnea) Atherosclerosis of coronary artery of [place] heart without angina pectoris Chest pain Myocardial infarction Surgical History History of cardiac catheterization History of esophagogastroduodenoscopy (EGD) History of colonoscopy History of cholecystectomy History of back surgery (~03/2024) Hx of neck surgery History of shoulder surgery History of colon resection History of coronary artery stent placement (03/30/16) Family History Mother Diabetes Brother Hypertension Social History Smoking Status: Former smoker how long ago did patient quit smokin alcohol intake: current alcohol intake frequency: holidays/special occasions only substance use type: does not use caffeine: Yes Type: carbonated beverages and coffee HPI HPI HPI: Patient is a 69-year-old male who is here for colonoscopy. The patient had his last colonoscopy in 2021 which was normal. Patient has a history of colon cancer and had a colectomy in 2017 on the right. The patient recently had a CT scan in June and it showed thickening of the rectosigmoid colon. He is here for colonoscopy. Of note the patient did prep today. ROS General General: Yes weight change (loss), fatigue and colon cancer; No appetite, breast cancer or weakness HEENT HEENT: No difficulty swallowing, eye injury, eye surgery, swollen glands or hoarseness Endo Endocrine: Yes diabetes mellitus; No thyroid disease, thyroid cancer, Hair loss, heat intolerance or cold intolerance Skin Skin: No rash or changing moles Musc Musculoskeletal: Yes back problems and arthritis; No rheumatoid arthritis, gout or joint pain Cardio Cardiovascular: Yes heart attack and heart stent; No murmur, pacemaker, heart disease, atrial fibrillation, high blood pressure, palpitations, shortness of breath with exertion or chest pain Psych Psychiatric: No depression, anxiety or hearing voices Resp Respiratory: No shortness of breath, Yes sleep apnea, Yes cough, Yes COPD, No asthma, No emphysema and No wheezing Gastro Gastrointestinal: Yes abdominal pain, Yes nausea or vomiting, Yes diarrhea, Yes constipation, No blood in stool, Yes acid reflux, No hemorrhoids, No ulcers, Yes gallbladder problem and No black,tarry stools [place] Hematologic: No blood thinners, No blood disorders, No bleeding, No anemia and No blood clots Neuro Neurologic: No numbness, No tingling and No weakness Exam Const General: cooperative Orientation: alert and oriented x3 HENMT Head: normal to inspection Neck Neck: normal visual inspection and full ROM Chest Chest palpation & inspection: normal inspection of the chest Resp Effort & Inspection: normal respiratory effort Auscultation: clear to auscultation bilaterally Cardio Rate: regular rate Rhythm: regular rhythm GI Inspection: non-distended Palpation: soft and nontender Skin General: no rashes or lesions noted Neuro General: patient alert and patient oriented x3 Extrem General: full ROM Psych Appearance: grossly normal Mental Status: mental status grossly normal Assessment and Plan Assessment and Plan (1) Personal history of colon cancer: Status: Acute (2) Abnormal CT of the abdomen: Status: Acute Orders: Orders Colonoscopy Today Plan Patient had a CT scan in June that showed abnormal thickening versus underdistention of the rectosigmoid colon and colonoscopy was recommended. Patient has history of colon cancer and had a right hemicolectomy. I explained endoscopy in detail to the patient. I explained the risks including but not limited to stroke or heart attack with anesthesia, perforation of the GI tract, bleeding, infection. I explained that any of these could necessitate further emergency surgery. The patient understands and all questions were answered sufficiently. The patient wishes to proceed with procedure. The patient bowel prepped himself before today's office visit so I will see if we can get him on this afternoon for colonoscopy. Carlito Vega MD Pager: [facility] [address] [place] [address], [address] [place] [address] Office: I have examined the patient and the H&P has been reviewed. There are no clinical changes since date of exam.
[2025-01-22 14:41] VITALS: BP 171/75; PULSE 55; RESP 18; TEMP 36.7; O2SAT 98; BMI 23.5
--- NOTE | 2025-01-22 14:51 | PCM.PRE.AN2 ---
ASA Classification* ASA Classification ASA Classification: 2 Assessment & Plan Anesthesia* Anesthesia Assessment Anesthesia Assessment: Discussed sedation and/or anesthesia options, risks, benefits, and alternatives with patient/parents/legal guardian/POA. Questions invited. The patient/parents/legal guardian/POA seems to understand and agrees to proceed with anesthesia plan. Reviewed the physical assessment, medical history, allergy history and patient home medications list prior to surgery/procedure/anesthetic and documented any changes. Performed airway and anesthesia risk assessments. Anesthesia Type Anesthesia Type: MAC History Source History Obtained from:: Patient and Chart Anesthesia Focused Assessment* Temperature: 98.1 F Pulse Rate: 55 Blood Pressure: 171/75 Respiratory Rate: 18 Pulse Ox: 98 Oxygen Delivery Method: Room Air Airway Assessment Mouth opens: >3 cm Mallampati Score: II Teeth Condition: Partial Neck Range of motion (ROM): Limited ROM (Slight Decrease) Labs Anesthesia Preop lab: CBC WBC, (4.4-11.0) 9.7 K/mm3 12/19/23, 10:32 RBC, (4.6-6.2) 3.69 M/mm3 L 12/19/23, 10:32 Hgb, (13.0-16.5) 11.1 g/dL L 12/19/23, 10:32 Hct, (40-54) 35.1 % L 12/19/23, 10:32 Plt Count, (150-450) 193 K/mm3 12/19/23, 10:32 CHEMISTRY Potassium, (3.5-5.1) 4.2 mmol/L 12/19/23, 10:32 Sodium, (136-145) 139 mmol/L 12/19/23, 10:32 BUN, (7-18) 12 mg/dL 12/19/23, 10:32 Creatinine, (0.70-1.30) 0.65 mg/dL L 12/19/23, 10:32 Glucose, (74-106) 153 mg/dL H 12/19/23, 10:32 POC Glucose, (74-106) 100 mg/dL 07/16/24, 07:43 TSH, (0.358-3.74) 1.32 uIU/mL 08/18/22, 15:08 COAG Pre-Assessment Diagnosis/Proposed Procedure Planned Operative Procedure(s): colonoscopy Anesthesia History 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 When Was Last Pacemaker Check QUESTION #4 FULL TEXT: You/Your Family Experience fever (hyperthermia) with Anesthesia Last Oral Intake Last Oral intake: Last Oral Intake NPO since 09:00 01/22/25 14:41 Meds taken in AM with sips of No 01/22/25 14:41 water? 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 suspension coordinator Female No 01/22/25 14:30 HX of Motion Sickness No 01/22/25 14:30 HX of N/V After Surgery No 01/22/25 14:30 Non-Smoker No 01/22/25 14:30 Duration of Surgery greater No 01/22/25 14:30 than 60 minutes Number of Risk Factors PONV Score Height & Weight Height & Weight: Anesthesia: Height & Weight Height 6 ft 2 in 01/22/25 14:41 Weight: 83.007 kg 01/22/25 14:41 Body Mass Index (BMI) 23.5 01/22/25 14:41 Respiratory Assessment Respiratory Assessment - in school suspension coordinator: Respiratory Tract Infection Hx - in school suspension coordinator Hx Respiratory Tract Infection No 01/22/25 14:30 STOP Sleep Apnea STOP Sleep Apnea - in school suspension coordinator: STOP Sleep Apnea - in school suspension coordinator Hx Hypertension No 01/22/25 14:30 Hx Sleep Apnea Yes 01/22/25 14:30 CPAP No 01/22/25 14:30 BIPAP No 01/22/25 14:30 Do you snore loudly (louder than talking or can be heard Do you often feel tired/ fatigued/ sleepy during daytime? Has anyone observed you stop breathing during sleep? STOP Results Positive 01/22/25 14:30 QUESTION #5 FULL TEXT : Do you snore loudly (louder than talking or can be heard through closed doors)? Tobacco Use History Tobacco Use History - in school suspension coordinator: Tobacco Use History - in school suspension coordinator Tobacco Use Smoking Status Former smoker 01/22/25 14:30 Hx Tobacco Use No 01/22/25 14:30 Years Smoking Packs Smoked per Day Smoking Cessation Date was No - quit smoking greater 01/22/25 14:30 within the last 15 years than 15 years ago Hx Smoking Cessation Date 03/06/90 01/22/25 14:30 Hx Smoking Cessation Counseling Hematologic Medial History Hematologic Hx - in school suspension coordinator: Hematologic Medical Hx - [employer] Hx of Blood Transfusion No 01/22/25 14:30 Hx of Transfusion in last 3 No 01/22/25 14:30 Months Date of Last Transfusion (if within last 3 months) Ever experience any problems No 01/22/25 14:30 with transfusion(s)? Specify any problems Hx of Preganancy in last 3 N/A 01/22/25 14:30 Months Nurse Filling Out Transfusion [email or web address] 01/22/25 14:30 & Questions: Date: 01/22/25 01/22/25 14:30 Time: 14:33 01/22/25 14:30 Patient unable to answer at this time (ie. confused, unrespo /Reproduction History /Reproductive History - in school suspension coordinator: /Reproductive Hx- in school suspension coordinator Hx Now Gestational Age (in weeks): EDC: Hx Hx Para Hx Section SAB No 01/22/25 14:30 Does the father of the baby or his family experience fever w Father of the baby Malignant Hypertension history comment [facility] Medical History Wears glasses Psoriasis Blackout Gastric reflux History of pain when walking Leg cramps History of heart attack Personal history of colon cancer Abnormal CT of the abdomen COPD (chronic obstructive pulmonary disease) Wears partial dentures Wears glasses Cancer Insulin dependent diabetes mellitus Arthritis High cholesterol Sleep apnea Former smoker Shortness of breath on exertion History of Holter monitoring History of tilt table evaluation History of echocardiogram History of stress test Cardiology follow-up encounter GERD (gastroesophageal reflux disease) Palpitations Coronary artery disease Atypical chest pain Chronic ischemic heart disease Abnormal stress test Hyperlipidemia Type 2 diabetes mellitus without complication GEORGETTE (obstructive sleep apnea) Atherosclerosis of coronary artery of [place] heart without angina pectoris Chest pain Myocardial infarction Home Medications ?Medication ?Instructions ?Recorded ?Last Taken ?Type insulin glargine 100 unit/mL (3 18 units subcut DAILY diabetes 04/28/16 01/21/25 History mL) subcutaneous pen (Lantus Solostar U-100 Insulin) metformin 1,000 mg tablet 1,000 mg PO BIDCM diabetes 04/28/16 01/21/25 History vitamin B comp and C no.3 15 mg-10 1 cap PO DAILY supplement 04/28/16 01/21/25 History mg-50 mg-5 mg-300 mg capsule (B Complex Plus Vitamin C) multivitamin with minerals 1 ea PO DAILY supplement 02/21/20 01/21/25 History aspirin 81 mg tablet,delayed 81 mg PO DAILY 06/30/22 01/21/25 History release (Adult Low Dose Aspirin) calcium carbonate 650 mg PO BID 06/30/22 01/21/25 History camphor 3.1 %-methyl salicylate 15 1 ea topical DAILY 06/30/22 Unknown History %-menthol 10 % topical gel cholecalciferol (vitamin D3) 50 50 mcg PO DAILY 06/30/22 01/21/25 History mcg (2,000 unit) tablet cinnamon bark 500 mg capsule 1,000 mg PO BID supplement 06/30/22 01/21/25 History duloxetine 30 mg capsule,delayed 90 mg PO DAILY 06/30/22 01/21/25 History release omeprazole 20 mg capsule,delayed 40 mg PO DAILY 06/30/22 01/21/25 History release atorvastatin 80 mg tablet 40 mg PO QHS 07/04/22 01/21/25 History gabapentin 300 mg capsule 600 mg PO TID 07/04/22 01/21/25 History omega-3 fatty acids 1,000 mg 2,000 mg PO BID 07/04/22 01/21/25 History capsule ixekizumab 80 mg/mL subcutaneous 80 mg subcut Q4W 11/08/23 Unknown History auto-injector (Taltz Autoinjector) Allergy/AdvReac Type Severity Reaction Status Date / Time No Known Allergies Allergy Verified 01/22/25 13:39 Family History Mother Diabetes Brother Hypertension Surgical History Hx laparoscopic cholecystectomy History of cardiac catheterization History of esophagogastroduodenoscopy (EGD) History of colonoscopy History of cholecystectomy History of back surgery (~03/2024) Hx of neck surgery History of shoulder surgery History of colon resection History of coronary artery stent placement (03/30/16) Social History Smoking Status: Former smoker how long ago did patient quit smokin alcohol intake: current alcohol intake frequency: holidays/special occasions only substance use type: does not use caffeine: Yes Type: carbonated beverages and coffee Review of Systems (Anesthesia) ROS Narrative System reviewed and no additional complaints, except as documented.
[2025-01-22 14:53] VITALS: BP 171/75; PULSE 55; RESP 18; TEMP 36.7; O2SAT 98
[2025-01-22] MEDS: Lactated Ringers 1,000 ML 15 ML IV (14:53)
[2025-01-22] MEDS: Lactated Ringers 1,000 ML 1000 ML IV (14:59)
[2025-01-22 15:25] VITALS: BP 105/65; BP 171/75; PULSE 55; RESP 18; TEMP 36.2; O2SAT 98
--- NOTE | 2025-01-22 15:27 | OP.COLON_ITS ---
Patient Name: Armin Hodge Procedure Date: 01/22/2025 2:30 PM Date of : 1955 Age: 69 Procedure: Colonoscopy Indications: Abnormal CT of the GI tract Providers: Carlito Vega MD Medicines: Propofol per Anesthesia Patient Profile: Last Colonoscopy: 5 years ago. Complications: No immediate complications. Procedure: Pre-Anesthesia Assessment: - Prior to the procedure, a History and Physical was performed, and patient medications and allergies were reviewed. The patient's tolerance of previous anesthesia was also reviewed. The risks and benefits of the procedure and the sedation options and risks were discussed with the patient. All questions were answered, and informed consent was obtained. Prior Anticoagulants: The patient has taken no anticoagulant or antiplatelet agents. After reviewing the risks and benefits, the patient was deemed in satisfactory condition to undergo the procedure. After I obtained informed consent, the scope was passed under direct vision. Throughout the procedure, the patient's blood pressure, pulse, and oxygen saturations were monitored continuously. The colonoscope was introduced through the anus and advanced to the ileocolonic anastomosis. The colonoscopy was performed without difficulty. The patient tolerated the procedure well. The quality of the bowel preparation was adequate. Anatomical landmarks were photographed. Scope In: 3:01:32 PM Scope Withdrawal Time 0 hours 5 minutes 1 second Scope Out: 3:20:36 PM Total Procedure Duration Time 0 hours 19 minutes 4 seconds Findings: The entire examined colon appeared normal on direct and retroflexion views. Impression: - The entire examined colon is normal on direct and retroflexion views. - No specimens collected. Recommendation: - Discharge patient to home. - Resume previous diet. - Continue present medications. - Repeat colonoscopy in 5 years for screening purposes. Procedure Code(s): --- Professional --- 56099, Colonoscopy, flexible; diagnostic, including collection of specimen(s) by brushing or washing, when performed (separate procedure) Diagnosis Code(s): --- Professional --- R93.3, Abnormal findings on diagnostic imaging of other parts of digestive tract CPT copyright 2021 [employer]. All rights reserved. The codes documented in this report are preliminary and upon drapery hemmer automatic review may be revised to meet current compliance requirements. Carlito Vega MD 01/22/2025 3:26:32 PM This report has been signed electronically. Number of Addenda: 0 Note Initiated On: 01/22/2025 2:30 PM
--- NOTE | 2025-01-22 15:27 | OP.PROVAT_ITS ---
01/22/2025 [facility] Re : Colonoscopy procedure for Armin [facility] This procedure was performed on Wednesday, January 22, 2025. My impressions and recommendations are as follows: Impressions : - The entire examined colon is normal on direct and retroflexion views. - No specimens collected. Recommendations : - Discharge patient to home. - Resume previous diet. - Continue present medications. - Repeat colonoscopy in 5 years for screening purposes. My findings are described in the full procedure note, which is enclosed. If I can be of further assistance, please feel free to contact me at Doctor phone number(s): , Work: . Sincerely, Carlito Vega MD 01/22/2025 3:26:32 PM This report has been signed electronically.
--- NOTE | 2025-01-22 15:29 | PCM.POST.ANE ---
Anesthesia: Postop Eval I Current Vital Signs Temperature: 97.1 F Pulse Rate: 55 Blood Pressure: 105/65 Respiratory Rate: 20 Pulse Ox: 97 Oxygen Delivery Method: Room Air Assessment Airway patent: Yes Spontaneous unlabored respirations: Yes Mental status: Awake and Calm nausea: No Vomiting: No Anesthesia Complication: No Fluid Hydration Crystalloid volume administer (ml): 300 Total IV fluid infused: 300 Progress Note Anesthesia document: Postop Eval 1 completed: Yes
[2025-01-22 15:30] VITALS: BP 105/65; BP 119/70; BP 171/75; PULSE 54; PULSE 55; RESP 18; RESP 20; TEMP 36.2; O2SAT 100; O2SAT 97
[2025-01-22 15:35] VITALS: BP 143/65; BP 171/75; PULSE 54; RESP 18; TEMP 36.3; O2SAT 100
[2025-01-22 15:47] VITALS: BP 171/75
--- NOTE | 2025-01-22 16:37 | POSTOPAN2_ITS ---
Anesthesia Postop Eval I Sum Postop Eval Completion status Anesthesia document: Postop Eval 1 completed: Yes Anesthesia Postop Eval I Summary Anesthesia Postop Eval I Summary: Anesthesia Postop Eval I: Assessment Summary Airway patent Yes 01/22/25 15:30 INSTALLATION AND SERVICE [email or web address] Spontaneous unlabored Yes 01/22/25 15:30 INSTALLATION AND SERVICE [email or web address] respirations Mental status Awake,Calm 01/22/25 15:30 INSTALLATION AND SERVICE [email or web address] nausea No 01/22/25 15:30 INSTALLATION AND SERVICE [email or web address] Vomiting No 01/22/25 15:30 INSTALLATION AND SERVICE [email or web address] Anesthesia Postop Eval I: Fluid Summary Crystalloid volume administer 300 01/22/25 15:30 INSTALLATION AND SERVICE [email or web address] (ml) Colloids volume administered ( ml) Blood Product volume administered (ml) Total IV fluid infused 300 01/22/25 15:30 INSTALLATION AND SERVICE [email or web address] Anesthesia Postop Eval I: Summary Notes Anesthesia Complication No 01/22/25 15:30 INSTALLATION AND SERVICE [email or web address] Anesthesia Complication Comment: Post-operative progress note Anesthesia: Postop Eval II Evaluation Mental status: Awake and Calm Pain Level: 0 nausea: No Vomiting: No
--- NOTE | 2025-01-22 16:37 | PCM.POSTANE2 ---
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 [email or web address] Spontaneous unlabored Yes 01/22/25 15:30 HYDRAULIC ROCKBREAKER [email or web address] respirations Mental status Awake,Calm 01/22/25 15:30 HYDRAULIC ROCKBREAKER [email or web address] nausea No 01/22/25 15:30 HYDRAULIC ROCKBREAKER [email or web address] Vomiting No 01/22/25 15:30 HYDRAULIC ROCKBREAKER [email or web address] Anesthesia Postop Eval I: Fluid Summary Crystalloid volume administer 300 01/22/25 15:30 HYDRAULIC ROCKBREAKER [email or web address] (ml) Colloids volume administered ( ml) Blood Product volume administered (ml) Total IV fluid infused 300 01/22/25 15:30 HYDRAULIC ROCKBREAKER [email or web address] Anesthesia Postop Eval I: Summary Notes Anesthesia Complication No 01/22/25 15:30 HYDRAULIC ROCKBREAKER [email or web address] Anesthesia Complication Comment: Post-operative progress note Anesthesia: Postop Eval II Evaluation Mental status: Awake and Calm Pain Level: 0 nausea: No Vomiting: No
== END 2025-01-22 16:00 | disposition home or self-care (01) ==
LOC: EN 14:17 → AC 14:18
PROVIDERS: Referring Provider Surgery; Visit Provider Surgery
PROC: 0DJD8ZZ Inspection of Lower Intestinal Tract, Via Natural or Artificial Opening Endoscopic (ICD-10-PCS; CPT 45378; principal; 2025-01-22 14:40)
DX: R93.5 Abnormal findings on diagnostic imaging of other abdominal regions, including retroperitoneum (principal); J44.9 Chronic obstructive pulmonary disease, unspecified; Z79.4 Long term (current) use of insulin; E11.9 Type 2 diabetes mellitus without complications; K21.9 Gastro-esophageal reflux disease without esophagitis; E78.00 Pure hypercholesterolemia, unspecified; Z79.84 Long term (current) use of oral hypoglycemic drugs; Z87.891 Personal history of nicotine dependence; I25.10 Atherosclerotic heart disease of native coronary artery without angina pectoris; Z85.038 Personal history of other malignant neoplasm of large intestine; I25.2 Old myocardial infarction; Z95.5 Presence of coronary angioplasty implant and graft; Z90.49 Acquired absence of other specified parts of digestive tract
CPT/HCPCS: 45378; 82962